=== PATIENT | male | born 1955 | race Caucasian/White ===

== ENCOUNTER 2016-07-24 13:30 | Inpatient (IN) | payer OTHER ==
[~2016-07-24] VITALS: Ht 182.9 cm; Wt 107.5 kg
[~2016-07-24 13:30] MED LIST: ADVAIR; ALBUTEROL IH; ASPIRIN81 M1 PO; ATROVENT; AUGMENTIN 875 M1 TAB PO; BACTRIM DS 800/1 TAB PO; CEFDINIR300 MG PO; CEPHALEXIN500 M2 PO; CLEOCIN HCL150 MG PO; CLEOCIN HCL300 MG PO; DELTASONE20 MG PO; ENALAPRIL20 MG PO; GLUCOPHAGE1000 MG PO; LEVAQUIN500 MG PO; METFORMIN850 MG PO; MICROZIDE12.5 MG PO; MOXIFLOXACIN 0.5% OP; NORCO 10/325 MG1 TAB; NORCO 10/325 MG1 TAB PO; NORCO 325 MG-7.1 TAB PO; NORVASC5 MG PO; ORETIC25 MG PO; PHENERGAN/DEXTRO5 ML PO; PREDNISONE; PREDNISONE10 MG PO; PREDNISONE20 MG PO; PROAIR HFA0.09 MG/Ac IH; PROVENTIL0.09 MG/Ac IH; QVAR HFA M80 MCG/ACT INH; QVAR0.08 MG/Ac IH; VASOTEC20 MG PO; ZITHROMAX500 M1 IV; [UNRECOGNIZED DRUG - OTHER] IH; [UNRECOGNIZED DRUG - OTHER] OP; [UNRECOGNIZED DRUG - OTHER] OP; [UNRECOGNIZED DRUG - SUPPLY] MC
[2016-07-24 14:00] VITALS: BP 155/89
[2016-07-24] MEDS ORDERED: ROXICODONE5 M1 PO (14:08)
[2016-07-24] MEDS ORDERED: DELTASONE20 MG PO (14:08)
[2016-07-24] MEDS ORDERED: NORVASC5 MG PO (14:08)
--- NOTE | 2016-07-24 14:25 | NUR ---
PT SENT TO XRAY.
--- NOTE | 2016-07-24 14:36 | NUR ---
PT W/C TO BED 3. LAB AT BEDSIDE.
--- NOTE | 2016-07-24 14:40 | NUR ---
PATIENT PRESENTS TO ED WITH SOB COUGH X 2-3 DAYS--WORSENING PER PT. PT STATES [ANTERIOR CHEST WALL SHARP PAIN WITH STRONG COUGH, SUBJECTIVE FEVER . DENIES N/V/D; SKIN IS PINK/WARM/DRY; AAOX4 WITH EVEN AND STEADY GAIT; LUNGS CLEAR BL; HR EVEN AND REGULAR; PATIENT STATES PAIN OF 5/10 AT THIS TIME; VSS; PATIENT POSITIONED FOR COMFORT; HOB ELEVATED; BEDRAILS UP X2; BED DOWN. ER MD MADE AWARE OF PT STATUS.
[2016-07-24] MEDS ORDERED: IPRATROPIUM 0.02% 0.5 MG/2.5 ML NEBU INH ONE ×2 (15:00→15:50)
[2016-07-24] MEDS ORDERED: DEXAMETHASONE 10 MG/ML VIAL IM ONE (15:00)
[2016-07-24] MEDS ORDERED: ALBUTEROL 0.083% 2.5 MG/3 ML NEBU INH ONE ×2 (15:00→15:50)
--- NOTE | 2016-07-24 15:35 | NUR ---
RT FINISHED BREATHING TREATMENT
--- NOTE | 2016-07-24 15:40 | NUR ---
PLAN WAS TO POSSIBLY DC PT WITH RX AND F/U WITH PMD--NOTED PT SPO2 TO DROP 88% GOOD WAVE FORM---MD AT BEDSIDE. PT OKAY WITH STAYING FOR OBSERVATION.
[2016-07-24] MEDS ORDERED: AZITHROMYCIN 500 MG in DEXTROSE 5% 250 ML IV ONE (15:50)
[2016-07-24] MEDS ORDERED: ONDANSETRON 4 MG/2 ML VIAL IVP PRN (16:05)
[2016-07-24] MEDS ORDERED: HYDROcodone/APAP 5/325 MG 1 TAB TAB PO PRN (16:05)
[2016-07-24] MEDS ORDERED: ALBUTEROL SULFATE/IPRATROPIU 3 ML SOL INH PRN (16:05)
[2016-07-24] MEDS ORDERED: ACETAMINOPHEN 325 MG TAB PO PRN (16:05)
[2016-07-24] MEDS ORDERED: LORazepam 2 MG/ML VIAL IVP PRN (16:05)
[2016-07-24] MEDS ORDERED: NON-FORMULARY ITEM (Beclomethasone Dipropionate Mdi* (Qvar Hfa Mdi*) 80 MCG) INH SCH (16:15)
[2016-07-24] MEDS ORDERED: DEXTROSE 50% 50 ML SYR IVP PRN (16:15)
[2016-07-24] MEDS ORDERED: oxyCODONE 5 MG TAB PO PRN (16:15)
[2016-07-24] MEDS ORDERED: AZITHROMYCIN 500 MG INJ VIAL IV ONE (16:17)
[2016-07-24] MEDS ORDERED: cefTRIAXone 1,000 MG VIAL ONE (16:17)
[2016-07-24] MEDS: BLOOD GLUCOSE MONITORING 1 DEV DEV FS SCH ×2 (16:30→21:25)
--- NOTE | 2016-07-24 16:40 | NUR ---
COMPLETED 2ND BREATHING TREATMENT, PT DENIES ANXIETY. ABLE TO HOLD CONVERSATION WITH STAFF 3-4 WORDED SENTENCES
--- NOTE | 2016-07-24 17:15 | NUR ---
RECEIVED REPORT FROM AMAURY IN ED, AMAURY SAID THEY STILL NEEDED TO TAKE PICTURES OF THE PATIENT WOUNDS ON BOTH OF HIS FEET AND WAS RECEIVING ZITHROMAX.
--- NOTE | 2016-07-24 17:16 | NUR ---
Pt transferred to Tele via [employer] , REPORT GIVEN TO HEMANT DARBY
--- NOTE | 2016-07-24 18:15 | NUR ---
RECEIVED PT ON UNIT VIA [facility], PT IS A/OX4, AMBULATORY, PT HAS IV ON THE LEFT HAND, PATENT AND INTACT, PT HAS BANDAGE WRAPPING ON BOTH LOWER EXTREMITIES, PT IS ON O2 2L NC, NO S/S OF RESPIRATORY DISTRESS OR DISCOMFORT NOTED, DISCUSSED PLAN OF CARE WITH PT, PT VERBALIZED UNDERSTANDING, ORIENTED PT TO ROOM, SAFETY/FALL PRECAUTIONS ARE IN PLACE, CALL LIGHT IS WITHIN REACH, WILL CONTINUE TO MONITOR.
--- NOTE | 2016-07-24 19:10 | NUR ---
ENDORSED PT TO WILNER PEACOCK. FOR CONTINUITY OF CARE. PT VS 124/74, HR 113, TEMP.97.8, PULSE O2 95%, R 20. PT STABLE AT THIS TIME.
--- NOTE | 2016-07-24 19:15 | NUR ---
RECEIVED REPORT, ASSUMED CARE. PT AAOX4. LYING ON [place]IGH [place]'S POSITION. ON O2 AT 2L VIA NC. RESPIRATION EVEN AND UNLABORED. SL TO RT HAND, GAUGE 20. NO S/S OF INFILTRATION NOTED AT THIS TIME. BILATERAL LOWER EXT WRAPPED WITH JESS BANDAGE. PER PT, LT LEG HAS WOUND AND THAT HIS HOME HEALTH NURSE WRAPPED IT WITH BANDAGE AFTER TX. PER PT, PHOTOS WERE TAKEN AT THE ER. DISCUSSED PLAN OF CARE. INSTRUCTED TO CALL STAFF WHEN REQUIRES ASSISTANCE. PT VERBALIZED UNDERSTANDING. CALL LIGHT WITHIN EASY REACH. WILL CONTINUE TO MONITOR.
[2016-07-24] MEDS ORDERED: methylPREDNISolone SS 125 MG in WATER STERILE 2 ML IV ONE (21:00)
[2016-07-24] MEDS: methylPREDNISolone SS 125 MG/2 ML VIAL IVP SCH (21:24)
[2016-07-24] MEDS: INSULIN LISPRO SLIDING SCALE 100 UNITS/ML VIAL SUBQ PRN (21:27)
--- NOTE | 2016-07-24 22:30 | NUR ---
ROUTINE ROUNDS, PT SLEEPING AT THIS NIKI BUT AROUSABLE. RESPIRATION EVEN AND UNLABORED,NO S/S OF RESPIRATORY DISTRESS. NO FACIAL GRIMACING INDICATING PAIN. O2 AT 2L VIA NC. WILL CONTINUE TO MONITOR.
[2016-07-25] VITALS: BP 137/65
[2016-07-25 01:00] VITALS: BP 135/81
[2016-07-25 04:00] VITALS: BP 135/81
[2016-07-25] MEDS ORDERED: guaiFENesin DM 200/20 MG-10 ML 10 ML UDC PO PRN (04:50)
[2016-07-25] MEDS ORDERED: traMADol 50 MG TAB PO PRN (04:50)
[2016-07-25] MEDS: methylPREDNISolone SS 125 MG/2 ML VIAL IVP SCH ×2 (05:20→12:51)
[2016-07-25] MEDS: BLOOD GLUCOSE MONITORING 1 DEV DEV FS SCH ×2 (06:31→11:33)
[2016-07-25] MEDS: INSULIN LISPRO SLIDING SCALE 100 UNITS/ML VIAL SUBQ PRN ×2 (06:33→11:56)
--- NOTE | 2016-07-25 07:25 | NUR ---
PT AWAKE AND VERBALLY RESPONSIVE. NO C/O PAIN, NO S/S OF RESPIRATORY DISTRESS AT THIS TIME. PT ON BREATHING TX AT THIS TIME. ENDORSED TO NEXT SHIFT FOR CONTINUITY OF CARE.
--- NOTE | 2016-07-25 07:26 | NUR ---
RECEIVED REPORT FROM NIGHT NURSE AT PT BEDSIDE. RT AT BEDSIDE RECEIVING BREATHING TREATMENT. PATIENT IS ALERT AND ORIENTED X4. BILATERAL WHEEZES HEARD OVER LUNGS. DENIES PAIN AT THIS TIME. WOUND DRESSINGS ON BILATERAL LEGS, INTACT AND DRY. IV TO RH PATENT AND INTACT. ON O2 3L NC. DENIES N/V. CALL LIGHT WITHIN REACH. BED IN LOWEST POSITION. WILL CONTINUE TO MONITOR.
[2016-07-25 08:00] VITALS: BP 134/71
[2016-07-25] MEDS ORDERED: ENOXAPARIN 40 MG/0.4 ML SYR SUBQ SCH (09:00)
[2016-07-25] MEDS ORDERED: amLODIPine 5 MG TAB PO SCH (09:00)
[2016-07-25] MEDS ORDERED: AZITHROMYCIN 500 MG in DEXTROSE 5% 250 ML IV SCH (09:00)
--- NOTE | 2016-07-25 09:07 | NUR ---
PATIENT HAS BEEN SCREENED AND CATEGORIZED HIGH NUTRITION RISK. PATIENT WILL BE SEEN WITHIN 1-2 DAYS OF ADMISSION. 07/25/16-07/26/[address]
--- NOTE | 2016-07-25 09:30 | NUR ---
PATIENT SEEN BY DR. STOLL AT PT BEDSIDE. PATIENT TAKEN OFF O2 3L NC. ON ROOM AIR, SATURATING 91%. PATIENT OKAY TO D/C HOME WITH FOLLOW UP APPOINTMENTS.
[2016-07-25] MEDS ORDERED: MAGNESIUM OXIDE 400 MG TAB PO SCH (10:17)
[2016-07-25] MEDS ORDERED: ZITHROMAX250 MG PO (10:20)
[2016-07-25] MEDS ORDERED: MEDROL4 M1 PO (10:22)
--- NOTE | 2016-07-25 12:40 | NUR ---
PATIENT'S DRESSINGS REPLACED, CLEAN AND INTACT. PT TOLERATED LUNCH. ALL NEEDS MET. NO S/S OF DISTRESS NOTED.
--- NOTE | 2016-07-25 13:06 | NUR ---
FAXED INITIAL REVIEW TO [facility] [phone] PHONE JULY [phone] CAS [phone]
--- NOTE | 2016-07-25 13:37 | NUR ---
07/25/16 RD INITIAL ASSESSMENT COMPLETED PLEASE REFER TO NUTRITION ASSESSMENT UNDER CARE ACTIVITY FOR ESTIMATED NUTRITIONAL NEEDS. 1. CHANGE DIET TO: 75 GM CONSISTENT CARBOHYDRATE DIET 2. ADD VITAMIN C SUPPLEMENT 1X/DAILY 3. ADD PROSOURCE 2X/DAILY 4. RD TO FOLLOW-UP 2-3 DAYS; HIGH RISK ROBEL ESPINOZA RD
--- NOTE | 2016-07-25 13:40 | NUR ---
PT DISCHARGE INSTRUCTIONS WITH PRESCRIPTIONS GIVEN, VERBALIZED UNDERSTANDING. PT AAOX4. AMBULATES. NO S/S OF RESPIRATORY DISTRESS ON ROOM AIR. PATIENT BELONGINGS RECEIVED FROM SECURITY. PT IV REMOVED, CANULA INTACT. PATIENT'S FAMILY TO TANK BOTTOM ASSEMBLER PATIENT. PATIENT WHEELED TO FRONT LOBBY, RECEIVED HOME MEDICATIONS FROM PHARMACY.
== END 2016-07-25 13:40 | disposition home or self-care (01) | DRG 140 ==
LOC: MED 13:30 → MTU 16:11
PROVIDERS: ADMIT Hospitalist; ATTEND Hospitalist
DX: J44.1 Chronic obstructive pulmonary disease with (acute) exacerbation (principal); E11.22 Type 2 diabetes mellitus with diabetic chronic kidney disease; E11.51 Type 2 diabetes mellitus with diabetic peripheral angiopathy without gangrene; G89.29 Other chronic pain; I12.9 Hypertensive chronic kidney disease with stage 1 through stage 4 chronic kidney disease, or unspecified chronic kidney disease; N18.9 Chronic kidney disease, unspecified; E83.42 Hypomagnesemia; E86.0 Dehydration; K42.9 Umbilical hernia without obstruction or gangrene; Z88.6 Allergy status to analgesic agent; Z88.1 Allergy status to other antibiotic agents; Z87.891 Personal history of nicotine dependence; Z88.8 Allergy status to other drugs, medicaments and biological substances; Z98.49 Cataract extraction status, unspecified eye; Z79.52 Long term (current) use of systemic steroids; Z89.422 Acquired absence of other left toe(s)

== ENCOUNTER 2017-05-27 17:11 | Inpatient (IN) | payer OTHER ==
[~2017-05-27] VITALS: Ht 182.9 cm; Wt 105.2 kg
[~2017-05-27 17:11] MED LIST changes: +ACET-9525 PO; -ADVAIR; +ALBU0.094 IH; -ALBUTEROL IH; +AMLO5TAB PO; +ASPI81CT95 PO; -ASPIRIN81 M1 PO; +ATOR20TA40 PO; -ATROVENT; -AUGMENTIN 875 M1 TAB PO; -BACTRIM DS 800/1 TAB PO; +BUDE1AER IH; -CEFDINIR300 MG PO; -CEPHALEXIN500 M2 PO; -CLEOCIN HCL150 MG PO; -CLEOCIN HCL300 MG PO; -DELTASONE20 MG PO; +DOCU-299 PO; -ENALAPRIL20 MG PO; +GLIP5TAB4 PO; -GLUCOPHAGE1000 MG PO; -LEVAQUIN500 MG PO; -METFORMIN850 MG PO; +METO50TE2 PO; -MICROZIDE12.5 MG PO; -MOXIFLOXACIN 0.5% OP; -NORCO 10/325 MG1 TAB; -NORCO 10/325 MG1 TAB PO; -NORCO 325 MG-7.1 TAB PO; -NORVASC5 MG PO; -ORETIC25 MG PO; -PHENERGAN/DEXTRO5 ML PO; -PREDNISONE; -PREDNISONE10 MG PO; -PREDNISONE20 MG PO; -PROAIR HFA0.09 MG/Ac IH; -PROVENTIL0.09 MG/Ac IH; -QVAR HFA M80 MCG/ACT INH; -QVAR0.08 MG/Ac IH; +TAMS0.4C96 PO; -VASOTEC20 MG PO; -ZITHROMAX500 M1 IV; -[UNRECOGNIZED DRUG - OTHER] IH; -[UNRECOGNIZED DRUG - OTHER] OP; -[UNRECOGNIZED DRUG - OTHER] OP; -[UNRECOGNIZED DRUG - SUPPLY] MC
[2017-05-27 17:31] VITALS: BP 134/87
--- NOTE | 2017-05-27 17:40 | NUR ---
Pt presents to ED urine retention and urinary urgency. Pt referred to ED from urologist to r/o sepsis. Pt afebrile. Bladder scan completed and show 832ml of residual urine. VSS. ER MD aware. Positioned in bed for comfort. Continue to monitor.
--- NOTE | 2017-05-27 17:40 | NUR ---
PT AMBULATES TO BED 11
[2017-05-27] MEDS ORDERED: NACL 0.9% 1,000 ML IV ONE ×2 (17:45→19:45)
[2017-05-27 18:54] LABS: BASOPHILS # (AUTO) 0.1 K/uL (0.00-0.22); EOSINOPHILS # (AUTO) 0.1 K/uL (0-0.4); HEMOGLOBIN 9.5 g/dL (12.0-18.0); MEAN CORPUSCULAR HEMOGLOBIN 25 pg (27-31); MEAN CORPUSCULAR HGB CONC 32 g/dL (33-37); NEUTROPHILS # (AUTO) 13.3 K/uL (1.8-7.7)
[2017-05-27 19:01] LABS: BASOPHILS % (AUTO) 0.3 % (0.0-2.0); EOSINOPHILS % (AUTO) 0.4 % (0.0-4.0); HEMATOCRIT 29.9 % (36-52); LYMPHOCYTES # (AUTO) 1.2 K/uL (2.0-11.5); MEAN CORPUSCULAR VOLUME 78.9 fL (80-94); MONOCYTES # (AUTO) 2.3 K/uL (0.8-1.0); MONOCYTES % (AUTO) 13.7 % (1.7-9.3); NEUTROPHILS % (AUTO) 78.6 % (42.2-75.2); PLATELET COUNT (AUTO) 265 K/uL (140-450); RED BLOOD CELL COUNT(AUTO) 3.79 MIL/uL (4.20-6.10); RED CELL DISTRIBUTION WIDTH 16.6 % (11.6-13.7)
--- NOTE | 2017-05-27 19:24 | NUR ---
RECEIVED REPORT FROM AM WILNER WOODSON.
[2017-05-27 19:26] LABS: ANION GAP 12.6 (8-16); CARBON DIOXIDE 25.8 mmol/L (21-32); POTASSIUM 3.4 mmol/L (3.5-5.1)
[2017-05-27 19:27] LABS: ALBUMIN 2.8 g/dL (3.4-5.0); CREATININE 2.1 mg/dL (0.7-1.3); TOTAL BILIRUBIN 0.6 mg/dL (0.0-1.0)
[2017-05-27] MEDS ORDERED: MORPHINE SULFATE 4 MG/ML SYR IVP ONE (19:45)
[2017-05-27] MEDS ORDERED: cefTRIAXone 1,000 MG VIAL ONE (19:53)
[2017-05-27] MEDS ORDERED: KCL 20 MEQ/WATER INJ PREMIX 100 ML IV ONE (20:05)
[2017-05-27] MEDS ORDERED: ONDANSETRON 4 MG/2 ML VIAL IVP PRN (20:05)
--- NOTE | 2017-05-27 20:05 | NUR ---
PER PATIENT, DID NOT WANT ME TO TAKE OFF WOUND CARE DRESSING FOR PHOTO DOCUMENTATION. RN AND MD MADE AWARE.
[2017-05-27 20:33] LABS: PROTHROMBIN TIME 12.2 secs (10.8-13.4)
[2017-05-27] MEDS ORDERED: METF850T PO (20:36)
[2017-05-27 21:00] VITALS: BP 144/83
--- NOTE | 2017-05-27 21:15 | NUR ---
Pt report given to SILVESTRE RUSS RN. Transfer of care at this time.
--- NOTE | 2017-05-27 21:20 | NUR ---
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
--- NOTE | 2017-05-27 21:40 | NUR ---
DR JAYCOB LINDER CALLED FOR NEPHROLOGY CONSULT, UPDATED ON PT'S CONDITION, NO NEW ORDER.
[2017-05-27] MEDS ORDERED: PIPERACILLIN/TAZOBACTAM 2.25 GM VIAL IV ONE (21:45)
[2017-05-27] MEDS: NACL 0.9% 1,000 ML IV SCH (21:51)
[2017-05-27] MEDS: PIPERACILLIN/TAZOBACTAM 2.25 GM in DEXTROSE 5% 50 ML IV SCH (21:51)
[2017-05-27] MEDS: BLOOD GLUCOSE MONITORING 1 DEV DEV FS SCH (21:52)
[2017-05-27] MEDS: MORPHINE SULFATE 2 MG/ML SYR IVP PRN (23:18)
[2017-05-28] VITALS: BP 138/77
[2017-05-28 03:09] LABS: APPEARANCE,URINE SL CLOUDY (CLEAR); BILIRUBIN,URINE NEGATIVE (NEGATIVE); BLOOD, URINE 2+ (NEGATIVE); COLOR,URINE YELLOW (YELLOW); LEUKOCYTE ESTERASE ,URINE 2+ (NEGATIVE); NITRITE, URINE NEGATIVE (NEGATIVE); PH,URINE 6.5 (5.0-9.0); UGLUCOSE NEGATIVE (NEGATIVE)
[2017-05-28] MEDS: MORPHINE SULFATE 2 MG/ML SYR IVP PRN ×4 (03:21→20:35)
[2017-05-28] MEDS ORDERED: IBUPROFEN 200 MG TAB PO PRN (03:30)
--- NOTE | 2017-05-28 03:47 | NUR ---
TEMP-103.1, ST-132, PAGED DR BEASLEY WITH NEW ORDER, MOTRIN PO GIVEN FOR FEVER, COOLING MEASURES DONE, MEDICATED PRN FOR PAIN, MONITORED CLOSELY.
[2017-05-28 04:00] VITALS: BP 123/63
[2017-05-28] MEDS ORDERED: PIPERACILLIN/TAZOBACTAM 2.25 GM VIAL IV ONE (04:41)
[2017-05-28] MEDS: PIPERACILLIN/TAZOBACTAM 2.25 GM in DEXTROSE 5% 50 ML IV SCH (04:47)
--- NOTE | 2017-05-28 04:50 | NUR ---
TEMP RECHECKED WITH 99.0, HR-116, NO DISTRESS NOTED, MONITORED CLOSELY.
[2017-05-28 05:38] LABS: RBC,URINE 3-10 (FEW) /HPF (0-5)
--- NOTE | 2017-05-28 06:00 | NUR ---
BLOOD SUGAR CHECKED WITH 217 RESULT, COVERAGE GIVEN, IV ZOSYN INFUSING WELL, ALCALA INTACT DRAINING WELL, MONITORED CLOSELY.
[2017-05-28] MEDS: INSULIN LISPRO SLIDING SCALE 100 UNITS/ML VIAL SUBQ PRN ×2 (06:05→20:44)
[2017-05-28] MEDS: BLOOD GLUCOSE MONITORING 1 DEV DEV FS SCH ×4 (06:47→20:45)
--- NOTE | 2017-05-28 07:22 | NUR ---
PT AWAKE, NO SIGNS OF DISTRESS, BEDSIDE REPORT GIVEN TO WILNER CACERES FOR CONTINUITY OF CARE.
--- NOTE | 2017-05-28 07:22 | NUR ---
RECEIVED REPORT FROM NIGHTSHIFT NURSE AT BEDSIDE. PATIENT ALERT AND ORIENTED X4. PATIENT HAS A ALCALA CATHETER IN PLACE. IV NOTED ON BOTH HANDS 20G. NORMAL SALINE FLUID INFUSING 75 ML/HOUR. PATIENT'S RESPIRATIONS ARE WITHIN NORMAL LIMITS. CALL LIGHT WITHIN REACH OF PATIENT. INSTRUCTED PATIENT TO CALL IF HE NEEDS HELP AMBULATING OR WITH ANYTHING. WILL CONTINUE TO MONITOR PATIENT.
[2017-05-28 07:34] LABS: BASOPHILS # (AUTO) 0.1 K/uL (0.00-0.22); BASOPHILS % (AUTO) 0.5 % (0.0-2.0); EOSINOPHILS # (AUTO) 0.1 K/uL (0-0.4); EOSINOPHILS % (AUTO) 0.8 % (0.0-4.0); HEMOGLOBIN 9.9 g/dL (12.0-18.0); LYMPHOCYTES # (AUTO) 0.9 K/uL (2.0-11.5); LYMPHOCYTES % (AUTO) 5.9 % (20.5-51.1); MEAN CORPUSCULAR HEMOGLOBIN 26 pg (27-31); MEAN CORPUSCULAR HGB CONC 32 g/dL (33-37); MEAN CORPUSCULAR VOLUME 80.2 fL (80-94); MONOCYTES % (AUTO) 12.3 % (1.7-9.3); NEUTROPHILS # (AUTO) 12.9 K/uL (1.8-7.7); NEUTROPHILS % (AUTO) 80.5 % (42.2-75.2); PLATELET COUNT (AUTO) 270 K/uL (140-450); RED BLOOD CELL COUNT(AUTO) 3.87 MIL/uL (4.20-6.10); RED CELL DISTRIBUTION WIDTH 16.9 % (11.6-13.7)
[2017-05-28 07:42] LABS: ALBUMIN 2.3 g/dL (3.4-5.0); ANION GAP 13.9 (8-16); CARBON DIOXIDE 24.4 mmol/L (21-32); CREATININE 1.9 mg/dL (0.7-1.3); POTASSIUM 3.3 mmol/L (3.5-5.1); TOTAL BILIRUBIN 0.6 mg/dL (0.0-1.0)
[2017-05-28 08:00] VITALS: BP 104/56
[2017-05-28] MEDS: FINASTERIDE 5 MG TAB PO SCH (08:34)
[2017-05-28] MEDS: TAMSULOSIN 0.4 MG CAP PO SCH (08:34)
--- NOTE | 2017-05-28 09:00 | NUR ---
PATIENT IS AWAKE RESTING. NO COMPLAINTS OF PAIN AT THIS TIME. PATIENT IN SEMI FOWLERS POSITION. NO SIGNS OF RESPIRATORY DISTRESS. WILL CONTINUE TO MONITOR PATIENT.
[2017-05-28] MEDS: NACL 0.9% 1,000 ML IV SCH (09:24)
--- NOTE | 2017-05-28 11:11 | NUR ---
PATIENT RESTING AT THIS TIME. NO COMPLAINTS OF PAIN. WILL CONTINUE TO MONITOR PATIENT.
[2017-05-28 12:00] VITALS: BP 118/79
[2017-05-28] MEDS: PIPER/TAZO 2.25GM/D5W PREMIX 50 ML IV SCH ×2 (12:22→20:35)
--- NOTE | 2017-05-28 12:27 | NUR ---
CM NOTE INITIAL REVIEW FAXED TO [facility] [phone] CAS # [phone]
--- NOTE | 2017-05-28 13:22 | NUR ---
PATIENT RESTING AT THIS TIME. NO COMPLAINTS OF PAIN. WILL CONTINUE TO MONITOR PATIENT.
[2017-05-28] MEDS ORDERED: POTASSIUM CHLORIDE 20 MEQ, LIDOCAINE 1% 25 MG in NACL 0.9% 250 ML IV SCH (13:30)
[2017-05-28] MEDS: POTASSIUM CHLORIDE 20 MEQ in NACL 0.45% 1,000 ML IV SCH (14:00)
[2017-05-28] MEDS: ALBUTEROL SULFATE/IPRATROPIU 3 ML SOL IH PRN ×2 (15:14→19:39)
--- NOTE | 2017-05-28 15:24 | NUR ---
PATIENT AWAKE AND ALERT. BREATH SOUNDS DIMINISHED. PT COMPLAINS OF SOB. PRN TX ADMINISTERED. PATIENT TOLERATED TX WELL. POST TX BREATH SOUNDS IMPORVED AERAION WITH EXPIRATORY WHEEZES. PATIENT STATES THAT HE "FEELS BETTER" POST TREATMENT. NO ADVERSE REACTIONS. NO SIGNS OF RESPIRATORY DISTRESS AT THIS TIME.
[2017-05-28 16:00] VITALS: BP 116/62
--- NOTE | 2017-05-28 17:41 | NUR ---
PATIENT RESTING IN BED. PATIENT AROUSABLE TO NAME. NO COMPLAINTS OF PAIN AT THIS TIME. WILL CONTINUE TO MONITOR PATIENT.
--- NOTE | 2017-05-28 19:24 | NUR ---
GAVE REPORT TO NIGHTSHIFT NURSE AT BEDSIDE. PATIENT IN STABLE CONDITION.
--- NOTE | 2017-05-28 19:25 | NUR ---
RECEIVED PT SLEEPING, EASILY AROUSABLE, VITAL SIGNS STABLE, ST ON TELE, NO SOB NOTED, TOLERABLE PAIN AT THIS TIME, WILL MEDICATE PRN, IVF INFUSING WELL, BLE VENOUS STASIS WITH WRAPPED DRESSING INTACT, ALCALA CATHETER TO GRAVITY WITH CLEAR YELLOW OUTPUT, PLAN OF CARE DISCUSS, SAFETY MEASURES IN PLACE, CALL LIGHT WITHIN REACH.
[2017-05-28 20:00] VITALS: BP 118/65
--- NOTE | 2017-05-28 20:45 | NUR ---
BLOOD SUGAR CHECKED WITH 182 RESULT, COVERAGE GIVEN, SNACK PROVIDED, DUE MEDS ADMINISTERED WITH TEACHING PROVIDED, MEDICATED PRN FOR PAIN, ALL NEEDS ATTENDED.
--- NOTE | 2017-05-28 23:45 | NUR ---
PT SLEEPING, EASILY AROUSABLE, VITAL SIGNS TAKEN, ORAL TEMP-99.7, ST-116 ON TELE, STARTED COOLING MEASURES, DENIES ANY PAIN, IVF INFUSING WELL, CONTINUE TO MONITOR CLOSELY.
[2017-05-29] VITALS: BP 107/56
[2017-05-29] MEDS: POTASSIUM CHLORIDE 20 MEQ in NACL 0.45% 1,000 ML IV SCH ×2 (00:06→03:35)
[2017-05-29] MEDS: MORPHINE SULFATE 2 MG/ML SYR IVP PRN ×4 (03:32→20:57)
--- NOTE | 2017-05-29 03:35 | NUR ---
PT AWAKE, COMPLAINING OF LEFT INDEX FINGER CRAMPING, IVF TRANSFERRED TO RT HAND, FELT BETTER, VITAL SIGNS TAKEN, AFEBRILE, ST ON TELE, MEDICATED PRN FOR LEG PAIN, MONITORED CLOSELY.
[2017-05-29 04:00] VITALS: BP 128/65
[2017-05-29] MEDS: PIPER/TAZO 2.25GM/D5W PREMIX 50 ML IV SCH ×3 (04:37→20:52)
--- NOTE | 2017-05-29 05:51 | NUR ---
BLOOD SUGAR CHECKED WITH 123 RESULT, NO COVERAGE NEEDED, NO DISTRESS AT THIS TIME, MONITORED CLOSELY.
[2017-05-29] MEDS: BLOOD GLUCOSE MONITORING 1 DEV DEV FS SCH ×4 (06:47→20:57)
[2017-05-29 07:03] LABS: MAGNESIUM 1.2 mg/dL (1.8-2.4); PHOSPHORUS 3.3 mg/dL (2.5-4.9)
--- NOTE | 2017-05-29 07:05 | NUR ---
RECEIVED PATIENT REPORT AT BEDSIDE. PATIENT AWAKE, ALERT AND ORIENTED. NO S/S OF DISTRESS. PATIENT ON ROOM AIR NO SOB NOTED, NO C/O PAIN. IVF INFUSING WELL, BLE VENOUS STASIS WITH WRAPPED DRESSING INTACT, ALCALA CATHETER TO GRAVITY WITH CLOUDY YELLOW OUTPUT, PLAN OF CARE DISCUSS, SAFETY MEASURES IN PLACE, CALL LIGHT WITHIN REACH.
--- NOTE | 2017-05-29 07:10 | NUR ---
PT AWAKE, NO SIGNS OF DISTRESS, BEDSIDE REPORT GIVEN TO WILNER GAR FOR CONTINUITY OF CARE.
[2017-05-29 08:00] VITALS: BP 122/72
[2017-05-29 08:25] LABS: ANION GAP 17.3 (8-16); CARBON DIOXIDE 24.2 mmol/L (21-32); CREATININE 1.5 mg/dL (0.7-1.3); POTASSIUM 3.5 mmol/L (3.5-5.1)
--- NOTE | 2017-05-29 09:23 | NUR ---
Spoke to pt. pt. is aax3, pt refuses with wound care evaluation, pt will continue to follow up with his previous wound care clinic and his caterpillar driver. primary RN notified.
[2017-05-29] MEDS: FINASTERIDE 5 MG TAB PO SCH (09:25)
[2017-05-29] MEDS: TAMSULOSIN 0.4 MG CAP PO SCH (09:25)
--- NOTE | 2017-05-29 09:30 | NUR ---
ADMINISTERED DUE MEDICATIONS. PATIENT TOLERATED WELL
--- NOTE | 2017-05-29 10:22 | NUR ---
CM NOTE CONCURRENT REVIEW FAXED TO [facility] [phone] CAS # [phone]
[2017-05-29] MEDS: ALBUTEROL SULFATE/IPRATROPIU 3 ML SOL IH PRN (11:16)
[2017-05-29 12:00] VITALS: BP 120/65
[2017-05-29 13:02] LABS: HEMATOCRIT 30.8 % (36-52); HEMOGLOBIN 9.8 g/dL (12.0-18.0); MEAN CORPUSCULAR HEMOGLOBIN 25 pg (27-31); MEAN CORPUSCULAR HGB CONC 32 g/dL (33-37); MEAN CORPUSCULAR VOLUME 78.5 fL (80-94); PLATELET COUNT (AUTO) 266 K/uL (140-450); RED BLOOD CELL COUNT(AUTO) 3.93 MIL/uL (4.20-6.10); RED CELL DISTRIBUTION WIDTH 17.1 % (11.6-13.7); WHITE BLOOD COUNT (AUTO) 11.8 K/uL (4.8-10.8)
--- NOTE | 2017-05-29 13:15 | NUR ---
MARIO NOTE RECEIVED DISCHARGE PLANNING ORDER FOR HH. PER MARIO SALGADO PH# [phone], CONTACT KARIN ANDRADE FOR ANY DC NEEDS. PER LINDA OF [facility], THEY ARE CURRENTLY SEEING PATIENT FOR WOUND CARE AND THEY WOULD HAVE A NURSE/PT TO SEE PATIENT WHEN DISCHARGED. FAXED ORDER TO [facility] [phone] ATTN: KARIN ANDRADE PH# [phone] AND TO [facility] [phone] ATTN: [facility]# [phone]. PER [facility] MARIO ANDRADE, SHE CANNOT FIND THE PATIENT ON THEIR SYSTEM AND WILL HAVE TO WAIT FOR HER CLINICAL COUNSELOR AND WILL CALL BACK WITH THE AUTHORIZATION AND SHE WILL FAX AUTHORIZATION TO [facility] ONCE SHE FINDS PATIENT IN THEIR SYSTEM.
--- NOTE | 2017-05-29 13:29 | NUR ---
05/29/2017 RD INITIAL ASSESSMENT COMPLETED PLEASE REFER TO NUTRITION ASSESSMENT UNDER CARE ACTIVITY FOR ESTIMATED NUTRITIONAL NEEDS. CONTINUE 60 GMS CCHO TOLERATED. SOFT TEXTURE FOODS. PROVIDED RENAL DIET NUTRITION EDUCATION. RD TO FOLLOW-UP IN 3-5 DAYS PATIENT IS MODERATE RISK. TAHMINA BILLS, ZACHARY
[2017-05-29] MEDS: INSULIN LISPRO SLIDING SCALE 100 UNITS/ML VIAL SUBQ PRN ×2 (14:00→22:10)
[2017-05-29] MEDS ORDERED: MAG SULF 2000 MG/WATER PREMIX 50 ML IV SCH (14:30)
--- NOTE | 2017-05-29 14:30 | NUR ---
PATIENT SEEN BY DR MCLAIN
[2017-05-29 15:04] LABS: EOSINOPHILS % (MANUAL) 2 % (0-4); LYMPHOCYTES % (MANUAL) 4 % (20-46); MONOCYTES % (MANUAL) 13 % (5-12)
[2017-05-29] MEDS: POTASSIUM CHL 20 MEQ/ 1/2 NS 1,000 ML IV SCH (15:50)
[2017-05-29 16:00] VITALS: BP 122/76
--- NOTE | 2017-05-29 16:30 | NUR ---
PATIENT COMFORTABLY RESTING IN BED, WATCHING TELEVISION. NO S/S OF DISTRESS NOTED
--- NOTE | 2017-05-29 19:35 | NUR ---
PATIENT REPORT GIVEN AT BEDSIDE. PATIENT ENDORSED IN STABLE CONDITION
[2017-05-29 20:00] VITALS: BP 126/70
[2017-05-30] VITALS: BP 118/74
[2017-05-30] MEDS: MORPHINE SULFATE 2 MG/ML SYR IVP PRN ×3 (02:03→12:24)
[2017-05-30] MEDS: POTASSIUM CHL 20 MEQ/ 1/2 NS 1,000 ML IV SCH (03:01)
[2017-05-30 04:00] VITALS: BP 128/78
[2017-05-30] MEDS: PIPER/TAZO 2.25GM/D5W PREMIX 50 ML IV SCH ×2 (05:09→12:23)
[2017-05-30] MEDS: BLOOD GLUCOSE MONITORING 1 DEV DEV FS SCH ×2 (06:34→11:30)
--- NOTE | 2017-05-30 07:30 | NUR ---
RECEIVED REPORT AT BEDSIDE FROM ZIGZAG APPLIQUER NURSE FOR CONTINUITY OF CARE. PATIENT IN BED AWAKE WATCHING TV. RESP EVEN AND UNLABORED. PATIENT WITH R HAND 20G WITH NS WITH POTASSIUM 20MEQ RUNNING AT 60ML/HR PATIENT. PT WITH DRESSING TO BILAT LOWER EXTREMITIES WITH COMPRESSION STOCKINGS. WILL CONT TO MONITOR.
--- NOTE | 2017-05-30 07:30 | NUR ---
REPORT GIVEN TO DAY NURSE FOR CONTINUITY OF CARE, PT IN STABLE CONDITION. NO S/S OF DISTRESS NOTED.
[2017-05-30 07:32] LABS: MAGNESIUM 1.4 mg/dL (1.8-2.4); PHOSPHORUS 2.9 mg/dL (2.5-4.9)
[2017-05-30 07:42] LABS: ANION GAP 15.9 (8-16); CREATININE 1.3 mg/dL (0.7-1.3); POTASSIUM 3.9 mmol/L (3.5-5.1)
[2017-05-30 08:00] VITALS: BP 120/73
--- NOTE | 2017-05-30 08:00 | NUR ---
PATIENT ALERT AND ABLE TO VERBALIZE NEEDS. NO ACUTE DISTRESS. RESP EVEN AND UNLABORED. LUNG SOUNDS CLEAR. BOWEL SOUNDS ACTIVE X4 QUADS. INITIAL ASSESSMENT PERFORMED. VSS. PATIENT WITH BILATERAL LEG WRAP WITH COMPRESSION STOCKINGS. PATIENT MEDICATED WITH MORPHINE THIS AM FOR BLE PAIN.TOLERATED WELL. IV SITE TO RIGHT [id number] WITH 1/2 NS WITH POTASSIUM RUNNING AT 60ML/HR. SITE PATENT AND INTACT. DENIES FLANK PAIN THIS AM. FC PATENT AND INTACT. DRAINING YELLOW URINE IN FC BAG. DISCUSSED PLAN OF CARE WITH PATIENT. CALL LIGHT WITHIN REACH. WILL CONT TO MONITOR.
[2017-05-30] MEDS: TAMSULOSIN 0.4 MG CAP PO SCH (08:02)
[2017-05-30] MEDS: FINASTERIDE 5 MG TAB PO SCH (08:02)
[2017-05-30 09:21] LABS: HEMATOCRIT 30.3 % (36-52); HEMOGLOBIN 9.9 g/dL (12.0-18.0); MEAN CORPUSCULAR HEMOGLOBIN 26 pg (27-31); MEAN CORPUSCULAR HGB CONC 33 g/dL (33-37); MEAN CORPUSCULAR VOLUME 78.6 fL (80-94); PLATELET COUNT (AUTO) 290 K/uL (140-450); RED BLOOD CELL COUNT(AUTO) 3.86 MIL/uL (4.20-6.10); RED CELL DISTRIBUTION WIDTH 16.5 % (11.6-13.7); WHITE BLOOD COUNT (AUTO) 10.9 K/uL (4.8-10.8)
--- NOTE | 2017-05-30 09:39 | NUR ---
DR CARRION CALLED TO INFORM THAT PATIENT WILL BE DISCHARGED HOME TODAY DR MCCLENDON TO ROUND ON PATIENT . RX REFILL TO BE SENT TO [facility] OFF [facility] IN [place].DR CARRION TO PUT IN DC ORDER. PATIENT MADE AWARE.
[2017-05-30 09:45] LABS: ALBUMIN 2.2 g/dL (3.4-5.0); ANION GAP 16.9 (8-16); CREATININE 1.3 mg/dL (0.7-1.3); EOSINOPHILS % (MANUAL) 2 % (0-4); LYMPHOCYTES % (MANUAL) 11 % (20-46); MONOCYTES % (MANUAL) 7 % (5-12); POTASSIUM 3.9 mmol/L (3.5-5.1); TOTAL BILIRUBIN 0.5 mg/dL (0.0-1.0)
--- NOTE | 2017-05-30 11:00 | NUR ---
PATIENT RESTING IN BED WITH EYES CLOSED. RESP EVEN AND UNLABORED. NO ACUTE DISTRESS NOTED. CALL LIGHT WITHIN REACH. WILL CONT TO MONITOR.
[2017-05-30] MEDS ORDERED: ATOR20TA40 PO (11:03)
[2017-05-30] MEDS ORDERED: GLIP5TAB4 PO (11:03)
[2017-05-30] MEDS ORDERED: BUDE1AER IH (11:03)
[2017-05-30] MEDS ORDERED: LEVO750T2 PO (11:03)
[2017-05-30] MEDS ORDERED: TAMS0.4C96 PO (11:03)
[2017-05-30] MEDS ORDERED: ALBU0.094 IH (11:03)
[2017-05-30] MEDS ORDERED: FINA5TAB5 PO (11:03)
[2017-05-30] MEDS ORDERED: ASPI81CT95 PO (11:03)
[2017-05-30] MEDS ORDERED: DOCU-299 PO (11:03)
[2017-05-30] MEDS ORDERED: METF850T PO (11:03)
[2017-05-30] MEDS ORDERED: AMLO5TAB PO (11:03)
[2017-05-30] MEDS ORDERED: METO50TE2 PO (11:03)
--- NOTE | 2017-05-30 11:15 | NUR ---
PHYSICAL THERAPY CO-SIGN The Physical Therapy Progress Notes documented by Configuration Management Administrator have been reviewed. I concur with the documentation of this SENIOR NETWORK SYSTEMS ENGINEER. Plan: continue PT as per plan of care if he remains in this hospital. Reviewed/Co-Signed by: Sarah Whitman, PT Documentation Done by: Bairon Suarez, SENIOR NETWORK SYSTEMS ENGINEER Addendum: 05/30/17 at 1428 by Sarah Whitman PT Amended: Links added.
[2017-05-30] MEDS ORDERED: MAG SULF 2000 MG/WATER PREMIX 50 ML IV SCH (11:30)
[2017-05-30 12:00] VITALS: BP 138/82
--- NOTE | 2017-05-30 12:24 | NUR ---
PATIENT MEDICATED WITH MORPHINE C/O 11/09 PAIN TO BLE . PATIENT ALERT AND ABLE TO MAKE NEEDS KNOWN. VS GATHERED. NO ACUTE DISTRESS.DENIES PAIN. CALL LIGHT WITHIN REACH. WILL CONT TO MONITOR.
--- NOTE | 2017-05-30 14:00 | NUR ---
PATIENT RESTING COMFORTABLY IN BED. RESP EVEN AND UNLABORED . NO ACUTE DISTRESS NOTED. DENIES PAIN. CALL LIGHT WITHIN REACH. WILL CONT TO MONITOR.
--- NOTE | 2017-05-30 15:35 | NUR ---
DISCHARGE INSTRUCTIONS REVIEWED WITH PATIENT. PATIENT VERBALIZED UNDERSTANDING AND AGREEMENT. MEDICATIONS SENT TO PHARMACY OF CHOICE. ALL BELONGINGS ACCOUNTED FOR AND IN POSSESSION. PATIENT ALERT AND ABLE TO MAKE NEEDS KNOWN. IV SITES TO LEFT AND RIGHT HAND REMOVED KENZIE WELL LUMEN INTACT. ID BANDS REMOVED. PATIENT VERBALIZED THAT FRIEND LIVES 5 MINUTES AWAY AND WOULD BE ARRIVING SHORTLY. ASSISTED PATIENT IN DRESSING. TEACHING PROVIDED TO PATIENT REGARDING FC CARE AND HOW TO EMPTY FC BAG. PATIENT ABLE TO RETURN DEMONSTRATE . VERBALIZED UNDERSTANDING AND AGREEMENT. PICTURES OF WOUNDS NOT TAKEN BECAUSE WE TO REMOVE BANDAGES.WAITING FOR PT FRIEND TO ARRIVE.
--- NOTE | 2017-05-30 16:15 | NUR ---
PATIENT TAKEN TO FRONT LOBBY VIA WC FRIEND ARRIVED TO PICK PATIENT UP. PATIENT LEFT WITHOUT DIFFICULTIES.
== END 2017-05-30 16:15 | disposition home or self-care (01) | DRG 720 ==
LOC: MED 17:11 → MTU 20:09
PROVIDERS: ADMIT Hospitalist; ATTEND Hospitalist
DX: A41.9 Sepsis, unspecified organism (principal); E43 Unspecified severe protein-calorie malnutrition; E11.22 Type 2 diabetes mellitus with diabetic chronic kidney disease; N17.9 Acute kidney failure, unspecified; N13.30 Unspecified hydronephrosis; N18.3 Chronic kidney disease, stage 3 (moderate); B35.1 Tinea unguium; E11.51 Type 2 diabetes mellitus with diabetic peripheral angiopathy without gangrene; N13.8 Other obstructive and reflux uropathy; N40.1 Benign prostatic hyperplasia with lower urinary tract symptoms; N39.0 Urinary tract infection, site not specified; J44.9 Chronic obstructive pulmonary disease, unspecified; R80.9 Proteinuria, unspecified; I87.2 Venous insufficiency (chronic) (peripheral); I87.8 Other specified disorders of veins; L97.509 Non-pressure chronic ulcer of other part of unspecified foot with unspecified severity; L30.9 Dermatitis, unspecified; I12.9 Hypertensive chronic kidney disease with stage 1 through stage 4 chronic kidney disease, or unspecified chronic kidney disease; E88.09 Other disorders of plasma-protein metabolism, not elsewhere classified; I25.10 Atherosclerotic heart disease of native coronary artery without angina pectoris; E83.42 Hypomagnesemia; E11.621 Type 2 diabetes mellitus with foot ulcer; Z88.6 Allergy status to analgesic agent; Z88.1 Allergy status to other antibiotic agents; Z88.5 Allergy status to narcotic agent; Z88.8 Allergy status to other drugs, medicaments and biological substances; Z80.8 Family history of malignant neoplasm of other organs or systems; Z87.891 Personal history of nicotine dependence; R33.8 Other retention of urine; D63.1 Anemia in chronic kidney disease; Z79.84 Long term (current) use of oral hypoglycemic drugs; Z79.82 Long term (current) use of aspirin
CPT/HCPCS: 36415; 76770; 80048; 80053; 81001; 82948; 83605; 83735; 83880; 84100; 84154; 84443; 85025; 85610; 87040; 87081; 87086; 93005; 94640; 96365; 96368; 96375; 97110; 97116; 97140; 97530; 99285; J0696; J1644; J1815; J2001; J2270; J2543; J3475; J3480; J7030; J7060; J7620; Q0092

== ENCOUNTER 2017-06-13 12:21 | Emergency (ER) | payer OTHER ==
[~2017-06-13] VITALS: Ht 182.9 cm; Wt 110.4 kg
[~2017-06-13 12:21] MED LIST changes: +FINA5TAB5 PO; +LEVO750T2 PO; +METF850T PO
[2017-06-13 12:41] VITALS: BP 143/89
--- NOTE | 2017-06-13 12:48 | NUR ---
PT AMBULATED TO BED 3
--- NOTE | 2017-06-13 13:21 | NUR ---
# 16 FR Isabel catheter with ml utilizing sterile technique. Immediate return of ml urine noted. Bedside drainage bag placed below level of bladder. Urine sample collected and sent to lab. Pt tolerated procedure .
[2017-06-13 13:35] LABS: APPEARANCE,URINE CLEAR (CLEAR); BILIRUBIN,URINE NEGATIVE (NEGATIVE); BLOOD, URINE TRACE-I (NEGATIVE); COLOR,URINE YELLOW (YELLOW); LEUKOCYTE ESTERASE ,URINE NEGATIVE (NEGATIVE); NITRITE, URINE NEGATIVE (NEGATIVE); UGLUCOSE NEGATIVE (NEGATIVE)
--- NOTE | 2017-06-13 13:35 | NUR ---
PATIENT PRESENTS TO ER FOR ALCALA LEAKAGE. DENIES PAIN, N/V,D. ORDERED SAMPLE FROM CURRENT ALCALA FOR UA AND ORDERED NEW ALCALA TO BE PLACED. PATIENT TOLERATED PROCEDURE WELL. PATIENT WAS LEFT IN LOW POSITION WITH BED RAILS UP.
[2017-06-13 13:55] LABS: RBC,URINE 0-5 (RARE) /HPF (0-5); WBC,URINE 0-5 (RARE) /HPF (0-5)
[2017-06-13 14:10] VITALS: BP 135/87
--- NOTE | 2017-06-13 14:10 | NUR ---
Patient discharged with v/s stable. Written and verbal after care instructions given and explained. Patient verbalized understanding. Ambulatory with steady gait. All questions addressed prior to discharge. Advised to follow up with PMD.
== END 2017-06-13 14:10 | disposition home or self-care (01) ==
LOC: MED 12:21
DX: T83.038A Leakage of other urinary catheter, initial encounter (principal); J44.9 Chronic obstructive pulmonary disease, unspecified; E11.9 Type 2 diabetes mellitus without complications; I10 Essential (primary) hypertension; Z86.14 Personal history of Methicillin resistant Staphylococcus aureus infection; Z88.1 Allergy status to other antibiotic agents; Z88.6 Allergy status to analgesic agent; Z88.5 Allergy status to narcotic agent
CPT/HCPCS: 51702; 81001; 99284; J7030

== ENCOUNTER 2017-07-11 13:54 | Emergency (ER) | payer OTHER ==
[~2017-07-11] VITALS: Ht 182.9 cm; Wt 108.9 kg
[2017-07-11 13:59] VITALS: BP 132/80
--- NOTE | 2017-07-11 14:04 | NUR ---
PATIENT AMBULATED TO ER BED 3
--- NOTE | 2017-07-11 14:05 | NUR ---
ASSUMED CARE OF PT AT THIS TIME. SKIN IS PALE/WARM/DRY; AAOX4 WITH EVEN AND STEADY GAIT; PATIENT STATES PAIN OF 8/10 AT THIS TIME; VSS; PATIENT POSITIONED FOR COMFORT; HOB ELEVATED; BEDRAILS UP X2; BED DOWN. ER MD MADE AWARE OF PT STATUS. WILL CONTINUE TO MONITOR.
[2017-07-11 14:43] LABS: APPEARANCE,URINE SL CLOUDY (CLEAR); BILIRUBIN,URINE NEGATIVE (NEGATIVE); BLOOD, URINE 3+ (NEGATIVE); COLOR,URINE RED (YELLOW); LEUKOCYTE ESTERASE ,URINE 2+ (NEGATIVE); NITRITE, URINE NEGATIVE (NEGATIVE); PH,URINE 7.5 (5.0-9.0); UGLUCOSE NEGATIVE (NEGATIVE)
[2017-07-11 15:06] LABS: RBC,URINE >100 /HPF (0-5); WBC,URINE 80-100 /HPF (0-5)
[2017-07-11] MEDS ORDERED: cefTRIAXone 1,000 MG in LIDOCAINE MPF 1% - **ER/OR** 2.1 ML IM ONE (16:05)
--- NOTE | 2017-07-11 16:05 | NUR ---
OLD ALCALA CATHTER REMOVED INTACT.
[2017-07-11 16:25] VITALS: BP 134/84
== END 2017-07-11 16:25 | disposition home or self-care (01) ==
LOC: MED 13:54
DX: T83.511A Infection and inflammatory reaction due to indwelling urethral catheter, initial encounter (principal); J44.9 Chronic obstructive pulmonary disease, unspecified; E11.9 Type 2 diabetes mellitus without complications; I10 Essential (primary) hypertension; Z88.1 Allergy status to other antibiotic agents; Z88.6 Allergy status to analgesic agent; Z88.5 Allergy status to narcotic agent
CPT/HCPCS: 51702; 81001; 87086; 87186; 96372; 99284; J0696; J2001

== ENCOUNTER 2017-07-31 10:23 | Emergency (ER) | payer OTHER ==
[~2017-07-31] VITALS: Ht 182.9 cm; Wt 108.2 kg
[2017-07-31 10:28] VITALS: BP 123/77
--- NOTE | 2017-07-31 10:32 | NUR ---
PT AMBULATES TO BED 2, REPORT GIVEN TO WILNER LLOYD
--- NOTE | 2017-07-31 10:50 | NUR ---
PATIENT PRESENTS TO ED WITH c/o bleeding on the tip of urinary catheter this morning per pt d/t molina fell off. PATIENT STATES PAIN OF 10/10 AT THIS TIME; VSS; PATIENT POSITIONED FOR COMFORT; HOB ELEVATED; BEDRAILS UP X2; BED DOWN. ER MD MADE AWARE OF PT STATUS.
--- NOTE | 2017-07-31 11:40 | NUR ---
PT REFUSED TO CHANGE NEW ALCALA CATHETER, JUST CHANGED NEW DRESSING TO STABLIZE THE CATHETER AT THIS TIME.
[2017-07-31 11:53] VITALS: BP 122/78
[2017-07-31 13:02] LABS: BILIRUBIN,URINE NEGATIVE (NEGATIVE); BLOOD, URINE TRACE-L (NEGATIVE); COLOR,URINE YELLOW (YELLOW); LEUKOCYTE ESTERASE ,URINE NEGATIVE (NEGATIVE); NITRITE, URINE NEGATIVE (NEGATIVE); UGLUCOSE NEGATIVE (NEGATIVE)
[2017-07-31 13:11] LABS: APPEARANCE,URINE CLEAR (CLEAR); RBC,URINE NONE SEEN /HPF (0-5); WBC,URINE NONE SEEN /HPF (0-5)
== END 2017-07-31 11:53 | disposition home or self-care (01) ==
LOC: MED 10:23
DX: Z46.82 Encounter for fitting and adjustment of non-vascular catheter (principal); J44.9 Chronic obstructive pulmonary disease, unspecified; E11.9 Type 2 diabetes mellitus without complications; I10 Essential (primary) hypertension; Z79.899 Other long term (current) drug therapy; Z88.8 Allergy status to other drugs, medicaments and biological substances
CPT/HCPCS: 81001; 99284

== ENCOUNTER 2017-08-18 13:37 | Emergency (ER) | payer OTHER ==
[~2017-08-18] VITALS: Ht 182.9 cm; Wt 108.9 kg
[2017-08-18 13:53] VITALS: BP 116/79
--- NOTE | 2017-08-18 13:59 | NUR ---
PT AMBULATED TO ER BED 09
--- NOTE | 2017-08-18 14:00 | NUR ---
ASSUMED TEMPORARY CARE OF PT FOR PRIMARY RN WHO IS ON 30 MIN. BREAK. C/O SOB X 2 DAYS. NO RESPIRATORY DISTRESS NOTED...PT SPEAKS IN FULL SENTENCES. C/O HEMATURIA; ALCALA CATHETER IN PLACE. AAOX4 WITH EVEN AND STEADY GAIT; PATIENT STATES PAIN OF 5/10 AT THIS TIME; VSS; PATIENT POSITIONED FOR COMFORT; HOB ELEVATED; BEDRAILS UP X2; BED DOWN. ER MD MADE AWARE OF PT STATUS. WILL CONTINUE TO MONITOR.
[2017-08-18] MEDS ORDERED: ALBUTEROL SULFATE/IPRATROPIU 3 ML SOL IH ONE (14:25)
--- NOTE | 2017-08-18 14:50 | NUR ---
REPORT GIVEN TO WILNER SMITH TO ASSUME CARE.
--- NOTE | 2017-08-18 14:55 | NUR ---
LAB AT BEDSIDE, PT. AAOX4. WILL CONTINUE TO MONITOR.
[2017-08-18 15:15] LABS: BASOPHILS # (AUTO) 0.1 K/uL (0.00-0.22); EOSINOPHILS # (AUTO) 0.5 K/uL (0-0.4); EOSINOPHILS % (AUTO) 4.4 % (0.0-4.0); HEMATOCRIT 36.8 % (36-52); HEMOGLOBIN 11.9 g/dL (12.0-18.0); LYMPHOCYTES # (AUTO) 1.6 K/uL (2.0-11.5); LYMPHOCYTES % (AUTO) 14.4 % (20.5-51.1); MEAN CORPUSCULAR HEMOGLOBIN 24 pg (27-31); MEAN CORPUSCULAR HGB CONC 32 g/dL (33-37); MEAN CORPUSCULAR VOLUME 73.3 fL (80-94); MONOCYTES % (AUTO) 8.5 % (1.7-9.3); NEUTROPHILS # (AUTO) 8.2 K/uL (1.8-7.7); NEUTROPHILS % (AUTO) 71.7 % (42.2-75.2); PLATELET COUNT (AUTO) 223 K/uL (140-450); RED BLOOD CELL COUNT(AUTO) 5.02 MIL/uL (4.20-6.10); RED CELL DISTRIBUTION WIDTH 16.1 % (11.6-13.7); WHITE BLOOD COUNT (AUTO) 11.4 K/uL (4.8-10.8)
[2017-08-18 15:32] LABS: PROTHROMBIN TIME 11.5 secs (10.8-13.4)
[2017-08-18 15:35] LABS: ALBUMIN 3.4 g/dL (3.4-5.0); ANION GAP 11.3 (8-16); CARBON DIOXIDE 33.1 mmol/L (21-32); CREATININE 1.2 mg/dL (0.7-1.3); POTASSIUM 3.4 mmol/L (3.5-5.1); TOTAL BILIRUBIN 0.4 mg/dL (0.0-1.0)
[2017-08-18 15:44] LABS: APPEARANCE,URINE CLOUDY (CLEAR); BILIRUBIN,URINE NEGATIVE (NEGATIVE); BLOOD, URINE 3+ (NEGATIVE); COLOR,URINE YELLOW (YELLOW); LEUKOCYTE ESTERASE ,URINE 2+ (NEGATIVE); NITRITE, URINE NEGATIVE (NEGATIVE); UGLUCOSE NEGATIVE (NEGATIVE)
[2017-08-18 15:47] LABS: RBC,URINE 50-80 /HPF (0-5); WBC,URINE 80-100 /HPF (0-5)
--- NOTE | 2017-08-18 16:04 | NUR ---
PT. RESTING COMFORTABLY IN BED, SAFETY PRECAUTIONS INITIATED, RR EVEN AND UNLABORED. VSS. WILL CONTINUE TO MONITOR.
--- NOTE | 2017-08-18 17:06 | NUR ---
PT. IS AAOX4, RR EVEN AND UNLABORED. PT. STATES " I FEEL BETTER NOW". WILL CONTINUE TO MONITOR
--- NOTE | 2017-08-18 17:30 | NUR ---
PT. PROVIDED WITH A DINNER TRAY, EATING WELL. NO FURTHER COMPLAINTS AT THIS TIME.
[2017-08-18] MEDS ORDERED: cefTRIAXone 250 MG in LIDOCAINE MPF 1% - **ER/OR** 0.9 ML IM ONE (18:25)
[2017-08-18 19:01] VITALS: BP 106/61
--- NOTE | 2017-08-18 19:01 | NUR ---
Patient discharged with v/s stable. Written and verbal after care instructions given and explained. Patient alert, oriented and verbalized understanding of instructions. Ambulatory with steady gait. All questions addressed prior to discharge. ID band removed. Patient advised to follow up with PMD. Rx of ibuprofen, keflex, and ventolin given. Patient educated on indication of medication including possible reaction and side effects. Opportunity to ask questions provided and answered.
== END 2017-08-18 19:01 | disposition home or self-care (01) ==
LOC: MED 13:37
DX: J44.1 Chronic obstructive pulmonary disease with (acute) exacerbation (principal); N39.0 Urinary tract infection, site not specified
CPT/HCPCS: 36415; 51702; 71045; 80053; 81001; 83880; 84484; 85025; 85610; 85730; 87086; 93005; 94640; 96372; 99285; J0696; J2001; J7620; Q0092; 87186

== ENCOUNTER 2017-08-21 14:30 | Emergency (ER) | payer OTHER ==
[~2017-08-21] VITALS: Ht 182.9 cm; Wt 108.9 kg
[2017-08-21 14:39] VITALS: BP 148/79
--- NOTE | 2017-08-21 14:44 | NUR ---
Patient given orange juice. Report given to Jc DARBY.
--- NOTE | 2017-08-21 14:45 | NUR ---
PT AMBULATES TO BED 12
[2017-08-21] MEDS ORDERED: MECLIZINE 25 MG TAB PO ONE (15:05)
--- NOTE | 2017-08-21 15:05 | NUR ---
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 DENIES LOC, N/V CHEST PAIN OR SOB UPON ASSESSMENT. PT STATES HE WAS WALKING WHEN HE SUDDENLY FELT DIZZINESS. PT STATES HE FELL BUT STOPPED HIMSELF FROM FALLING TO THE GROUND, WHILE IN THE PROCESS HIT HIS HEAD ON A NIGHT STAND. NO BRUISING, SWELLING OR DEFORMITY OBSERVED TO HEAD, REPORTS SOME NECK PAIN TO LEFT SIDE OF NECK -- NO BRUISING, BULGING OR DEFORMITY. PT PLACED ON ALL MONITORS, VS WNL. DR WOODS AT BEDSIDE TO SHIRA
--- NOTE | 2017-08-21 15:08 | NUR ---
PT WITH INDWELLING URINARY CATHETER IN PLACE WITH H/O ENLARGED PROSTATE. LAST REPLACED TWO DAYS AGO. PT ALSO HAS A BULGING UMBILICAL HERNIA, DENIES PAIN. PTS BILAT LEGS ARE WRAPPED WITH COMPRESSION STOCKINGS, STATES HE WEARS THEM FOR CIRULATION PURPOSES. ALSO REPORTS LEFT LEG HAS A WOUND THAT IS BEING TREATED BY HOME HEALTH RN. DENIES ANY WORSENING CHANGE IN CONDITION FROM PREVIOUS VISIT ON 08/18/17.
--- NOTE | 2017-08-21 15:41 | NUR ---
PT TAKEN TO CT IN [place]
[2017-08-21 15:52] LABS: BASOPHILS # (AUTO) 0.1 K/uL (0.00-0.22); BASOPHILS % (AUTO) 0.6 % (0.0-2.0); EOSINOPHILS # (AUTO) 0.6 K/uL (0-0.4); EOSINOPHILS % (AUTO) 6.1 % (0.0-4.0); HEMATOCRIT 37.1 % (36-52); HEMOGLOBIN 12.4 g/dL (12.0-18.0); LYMPHOCYTES # (AUTO) 1.4 K/uL (2.0-11.5); LYMPHOCYTES % (AUTO) 13.4 % (20.5-51.1); MEAN CORPUSCULAR HEMOGLOBIN 24 pg (27-31); MEAN CORPUSCULAR HGB CONC 33 g/dL (33-37); MEAN CORPUSCULAR VOLUME 73.2 fL (80-94); MONOCYTES # (AUTO) 0.9 K/uL (0.8-1.0); MONOCYTES % (AUTO) 8.7 % (1.7-9.3); NEUTROPHILS # (AUTO) 7.5 K/uL (1.8-7.7); NEUTROPHILS % (AUTO) 71.2 % (42.2-75.2); PLATELET COUNT (AUTO) 217 K/uL (140-450); RED BLOOD CELL COUNT(AUTO) 5.07 MIL/uL (4.20-6.10); RED CELL DISTRIBUTION WIDTH 16.3 % (11.6-13.7); WHITE BLOOD COUNT (AUTO) 10.5 K/uL (4.8-10.8)
--- NOTE | 2017-08-21 15:53 | NUR ---
PT RETURNED FROM CT, NO CHANGE FROM PREVIOUS. PENDING LABS
[2017-08-21 15:59] LABS: ANION GAP 12.7 (8-16); CARBON DIOXIDE 29.5 mmol/L (21-32); CREATININE 1.1 mg/dL (0.7-1.3); POTASSIUM 3.2 mmol/L (3.5-5.1)
[2017-08-21 16:05] LABS: ALBUMIN 3.7 g/dL (3.4-5.0); TOTAL BILIRUBIN 0.3 mg/dL (0.0-1.0)
--- NOTE | 2017-08-21 16:38 | NUR ---
PT STATES "THAT MEDICATION HELPED MY DIZZINESS A LOT." DENIES DIZZINESS AT THIS TIME, DR WOODS AT BEDSIDE SPEAKING WITH PT.
[2017-08-21 16:49] VITALS: BP 131/81
--- NOTE | 2017-08-21 16:49 | NUR ---
Patient discharged with v/s stable. Written and verbal after care instructions given and explained. Patient alert, oriented and verbalized understanding of instructions. Ambulatory with steady gait. All questions addressed prior to discharge. ID band removed. Patient advised to follow up with PMD. Rx of ANITVERT given. Patient educated on indication of medication including possible reaction and side effects. Opportunity to ask questions provided and answered.
== END 2017-08-21 16:49 | disposition home or self-care (01) ==
LOC: MED 14:30
DX: R42 Dizziness and giddiness (principal); I11.0 Hypertensive heart disease with heart failure; I50.9 Heart failure, unspecified; J44.9 Chronic obstructive pulmonary disease, unspecified; E11.9 Type 2 diabetes mellitus without complications; Z79.4 Long term (current) use of insulin; Z88.1 Allergy status to other antibiotic agents; Z88.8 Allergy status to other drugs, medicaments and biological substances
CPT/HCPCS: 36415; 70450; 80053; 85025; 99285; J8597

== ENCOUNTER 2017-10-16 13:02 | Emergency (ER) | payer OTHER ==
[~2017-10-16] VITALS: Ht 182.9 cm; Wt 109.8 kg
[~2017-10-16 13:02] MED LIST changes: +CARV12.5 PO; -LEVO750T2 PO
[2017-10-16 13:08] VITALS: BP 148/75
--- NOTE | 2017-10-16 13:23 | NUR ---
PT AMBULATES TO BED 6
--- NOTE | 2017-10-16 13:25 | NUR ---
62 YO M BIB SELF W/ C/O RIGHT HAND LACERATION FROM A METAL FAN TRYING TO CHANGE THE SPEED, THE METAL BLADES GOT HIS RIGHT INDEX AND MIDDLE FINGER. BLEEDING WELL CONTROLLED AT THIS TIME BY AN JESS WRAP THAT THE PT WRAPPED HIMSELF. A LARGE AMOUNT OF DRIED BLOOD NOTED ON THE PATIENT. CAP REFILL LESS THAN 3 SECONDS ON AFFECTED EXTREMITY, LIMITED ROM. PULSES PALPABLE 2+. PT DOES NOT REMEMBER LAST TETANUS SHOT. AAOX4. GCS 15. CMS INTACT. AMBULATORY W/ STEADY GAIT. RR EVEN AND UNLABORED. LUNGS CLEAR. PT NOTED W/ ALCALA CATHETER. BED DOWN; BEDRAIL UP X 1; ER MD AWARE AND NOTIFIED OF PT STATUS. HX; ASTHMA, COPD, EMPHYSEMA, DM, HTN, POOR CIRCULATION, HERNIA, ENLARGED PROSTATE, 2X RI, LAST WAS APR 13, 2017, CONGESTIVE HEART FAILURE RX; TAMSULIN, FLUDROCORTISONE, METFORMIN, ATORVASTATIN, FINASTERIDE, GLIPIZIDE, DOCUSATE, ASA, FERROUS SULFATE, CARVEDILOL, DICYCLOMINE, SULFAMETHOXAZOL, MECLIZINE
[2017-10-16] MEDS ORDERED: CEPHALEXIN 500 MG CAP PO ONE (14:05)
--- NOTE | 2017-10-16 14:06 | NUR ---
Patient being evaluated by physician at bedside.
--- NOTE | 2017-10-16 14:21 | NUR ---
RAD AT BEDSIDE
--- NOTE | 2017-10-16 15:07 | NUR ---
SPLINT PUT ON PT BY EMT
--- NOTE | 2017-10-16 17:00 | NUR ---
PT RESTING IN BED WITH EVEN AND UNLABOR BREATHING
[2017-10-16 18:56] VITALS: BP 145/73
--- NOTE | 2017-10-16 18:56 | NUR ---
Patient discharged with v/s stable. Written and verbal after care instructions given and explained. Patient alert, oriented and verbalized understanding of instructions. Ambulatory with steady gait. All questions addressed prior to discharge. ID band removed. Patient advised to follow up with PMD. Rx of motrin and keflex given. Patient educated on indication of medication including possible reaction and side effects. Opportunity to ask questions provided and answered.
== END 2017-10-16 18:56 | disposition home or self-care (01) ==
LOC: MED 13:02
DX: S67.21XA Crushing injury of right hand, initial encounter (principal); S67.192A Crushing injury of right middle finger, initial encounter; S67.190A Crushing injury of right index finger, initial encounter; J44.9 Chronic obstructive pulmonary disease, unspecified; E11.9 Type 2 diabetes mellitus without complications; I11.0 Hypertensive heart disease with heart failure; I50.9 Heart failure, unspecified; Z88.1 Allergy status to other antibiotic agents; Z88.6 Allergy status to analgesic agent; Z88.5 Allergy status to narcotic agent; Z79.899 Other long term (current) drug therapy; W22.8XXA Striking against or struck by other objects, initial encounter; Y93.89 Activity, other specified; Y92.89 Other specified places as the place of occurrence of the external cause; Y99.8 Other external cause status
CPT/HCPCS: 73130; 82948; 90471; 90715; 99284; Q0092

== ENCOUNTER 2017-10-18 00:08 | Emergency (ER) | payer OTHER ==
[~2017-10-18] VITALS: Ht 182.9 cm; Wt 108.9 kg
[2017-10-18 00:10] VITALS: BP_SYST 155; BP_SYST 171; BP_DIAS 100; BP_DIAS 92
--- NOTE | 2017-10-18 00:18 | NUR ---
TO LOBBY A/W BED, AMBULATORY, SOA2 97%, ERMD NOTED.
--- NOTE | 2017-10-18 02:48 | NUR ---
TO BED # 2 AMBULATORY, REPORT GIVEN TO NOELLE DARBY
--- NOTE | 2017-10-18 02:50 | NUR ---
PATIENT PRESENTS TO ED WITH DIFF OF BREATHING FOR 2 DAYS, WITH WHEEZING SKIN IS PINK/WARM/DRY; AAOX4 WITH EVEN AND STEADY GAIT; PATIENT STATES PAIN OF 6/10 AT THIS TIME; PATIENT POSITIONED FOR COMFORT; HOB ELEVATED; BEDRAILS UP X2; BED DOWN. ER MD MADE AWARE OF PT STATUS.
[2017-10-18] MEDS ORDERED: predniSONE 20 MG TAB PO ONE (03:35)
[2017-10-18] MEDS ORDERED: ALBUTEROL 0.083% 2.5 MG/3 ML NEBU INH ONE (03:35)
--- NOTE | 2017-10-18 04:20 | NUR ---
LABS DRAWN BY RN, URINE SAMPLE COLLECTED. 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
[2017-10-18 04:25] LABS: APPEARANCE,URINE HAZY (CLEAR); BILIRUBIN,URINE NEGATIVE (NEGATIVE); BLOOD, URINE 1+ (NEGATIVE); COLOR,URINE YELLOW (YELLOW); LEUKOCYTE ESTERASE ,URINE NEGATIVE (NEGATIVE); NITRITE, URINE NEGATIVE (NEGATIVE); UGLUCOSE NEGATIVE (NEGATIVE)
[2017-10-18 04:28] LABS: BASOPHILS # (AUTO) 0.1 K/uL (0.00-0.22); BASOPHILS % (AUTO) 0.9 % (0.0-2.0); EOSINOPHILS # (AUTO) 1.8 K/uL (0-0.4); HEMATOCRIT 38.6 % (36-52); HEMOGLOBIN 12.2 g/dL (12.0-18.0); LYMPHOCYTES # (AUTO) 1.6 K/uL (2.0-11.5); LYMPHOCYTES % (AUTO) 17.4 % (20.5-51.1); MEAN CORPUSCULAR HEMOGLOBIN 25 pg (27-31); MEAN CORPUSCULAR HGB CONC 32 g/dL (33-37); MEAN CORPUSCULAR VOLUME 78.5 fL (80-94); MONOCYTES # (AUTO) 0.8 K/uL (0.8-1.0); MONOCYTES % (AUTO) 8.8 % (1.7-9.3); NEUTROPHILS # (AUTO) 4.7 K/uL (1.8-7.7); NEUTROPHILS % (AUTO) 52.4 % (42.2-75.2); PLATELET COUNT (AUTO) 213 K/uL (140-450); RED BLOOD CELL COUNT(AUTO) 4.92 MIL/uL (4.20-6.10); RED CELL DISTRIBUTION WIDTH 18.1 % (11.6-13.7); WHITE BLOOD COUNT (AUTO) 8.9 K/uL (4.8-10.8)
[2017-10-18 04:34] LABS: RBC,URINE 3-10 (FEW) /HPF (0-5); WBC,URINE 0-5 (RARE) /HPF (0-5)
[2017-10-18 04:43] LABS: ANION GAP 11.9 (8-16); CARBON DIOXIDE 27.1 mmol/L (21-32); CREATININE 1.2 mg/dL (0.7-1.3)
[2017-10-18 04:45] LABS: EOSINOPHILS % (AUTO) 20.5 % (0.0-4.0)
[2017-10-18 04:50] LABS: ALBUMIN 3.5 g/dL (3.4-5.0); TOTAL BILIRUBIN 0.4 mg/dL (0.0-1.0)
--- NOTE | 2017-10-18 06:12 | NUR ---
Patient discharged with v/s stable. Written and verbal after care instructions given and explained. Patient alert, oriented and verbalized understanding of instructions. Ambulatory with steady gait. All questions addressed prior to discharge. ID band removed. Patient advised to follow up with PMD. Rx of PREDNISONE AND ALBUTEROL given. Patient educated on indication of medication including possible reaction and side effects. Opportunity to ask questions provided and answered.
[2017-10-18 06:13] VITALS: BP 142/88
== END 2017-10-18 06:13 | disposition home or self-care (01) ==
LOC: MED 00:08
DX: J45.909 Unspecified asthma, uncomplicated (principal); I11.0 Hypertensive heart disease with heart failure; I50.9 Heart failure, unspecified; E11.9 Type 2 diabetes mellitus without complications; Z88.1 Allergy status to other antibiotic agents; Z88.6 Allergy status to analgesic agent; Z88.5 Allergy status to narcotic agent; Z79.1 Long term (current) use of non-steroidal anti-inflammatories (NSAID); Z79.899 Other long term (current) drug therapy
CPT/HCPCS: 36415; 71045; 80053; 81001; 82948; 84484; 85025; 87086; 94640; 99285; J7512; J7613; Q0092

== ENCOUNTER 2017-11-06 20:47 | Emergency (ER) | payer OTHER ==
[~2017-11-06] VITALS: Ht 182.9 cm; Wt 108.9 kg
[2017-11-06 21:01] VITALS: BP 126/74
--- NOTE | 2017-11-06 21:03 | NUR ---
TO LOBBY A/W BED, DAVINA RENDON NOTED
--- NOTE | 2017-11-06 21:52 | NUR ---
PT AMBULATED TO ER BED 04
--- NOTE | 2017-11-06 22:00 | NUR ---
PATIENT IS A 62 Y/O MALE WHO PRESENTS TO THE ED C/O HEMATURIA. PT REPORTS PAIN IN HIS ALCALA CATH AND BLEEDING X1 DAY. PT REPORTS 8/10 PENILE PAIN THAT DOES NOT RADIATE. PT DENIES CP, SOB, N/V/D. PT AWAKE, ALERT, AMBULATORY, RR EVEN/UNLABORED. PT REPOSITIONED FOR COMFORT, BED IN LOWEST POSITION. ER MD DR. TODD NOTIFIED. WILL CONTINUE TO MONITOR.
--- NOTE | 2017-11-07 | NUR ---
PER DR. TODD CHANGE ALCALA CATHETER.
--- NOTE | 2017-11-07 00:05 | NUR ---
REMOVED 16 FR ALCALA, PT TOLERATED WELL.
--- NOTE | 2017-11-07 00:10 | NUR ---
# 16 FR Isabel catheter with 10 ml utilizing sterile technique. Immediate return of 5 ml OF urine noted. Bedside drainage bag placed below level of bladder. Pt tolerated procedure WELL.
[2017-11-07 00:30] VITALS: BP 119/82
== END 2017-11-07 00:30 | disposition home or self-care (01) ==
LOC: MED 20:47
DX: R31.9 Hematuria, unspecified (principal); I11.0 Hypertensive heart disease with heart failure; I50.9 Heart failure, unspecified; E11.9 Type 2 diabetes mellitus without complications; J44.9 Chronic obstructive pulmonary disease, unspecified; Z88.1 Allergy status to other antibiotic agents; Z88.5 Allergy status to narcotic agent; Z88.6 Allergy status to analgesic agent; Z79.899 Other long term (current) drug therapy
CPT/HCPCS: 51702; 81002; 99284

== ENCOUNTER 2017-11-13 14:32 | Inpatient (IN) | payer OTHER ==
[~2017-11-13] VITALS: Ht 182.9 cm; Wt 103.4 kg
[2017-11-13 14:39] VITALS: BP 133/74
[2017-11-13] MEDS ORDERED: NACL 0.9% 1,000 ML IV ONE (14:55)
--- NOTE | 2017-11-13 15:07 | NUR ---
PT PRESENTS TO ED WITH LOWER ABDOMINAL PAIN X 1 POST HAVING AN EXAM WITH HIS CLUB ROOM ATTENDANT. PER PT "SHE TOUCHED MY HERNIA AND SINCE THEN IT HAS BEEN HURTING" PT DENIES ANY VOMITTING OR NAUSEA AT THIS TIME. BOWEL SOUNDS PRESENT IN ALL QUADRANTS. ABDOMEN IS SOFT UPON PALPATION. PT HAS ALCALA IN PLACE UPON ARRIVAL WITH NO COMPLICATIONS WITH DRAINAGE. PT PLACED ON MONITOR AND ALL VSS. PENDING MD SILVA.
--- NOTE | 2017-11-13 15:20 | NUR ---
PT BACK FROM CT SCAN AT THIS TIME VIA KEN
[2017-11-13 15:58] LABS: BASOPHILS # (AUTO) 0.1 K/uL (0.00-0.22); BASOPHILS % (AUTO) 0.7 % (0.0-2.0); EOSINOPHILS # (AUTO) 0.5 K/uL (0-0.4); EOSINOPHILS % (AUTO) 5.4 % (0.0-4.0); HEMOGLOBIN 12.3 g/dL (12.0-18.0); LYMPHOCYTES # (AUTO) 1.4 K/uL (2.0-11.5); LYMPHOCYTES % (AUTO) 14.2 % (20.5-51.1); MEAN CORPUSCULAR HEMOGLOBIN 26 pg (27-31); MEAN CORPUSCULAR HGB CONC 32 g/dL (33-37); MEAN CORPUSCULAR VOLUME 79.1 fL (80-94); MONOCYTES # (AUTO) 0.8 K/uL (0.8-1.0); MONOCYTES % (AUTO) 7.9 % (1.7-9.3); NEUTROPHILS # (AUTO) 7.2 K/uL (1.8-7.7); NEUTROPHILS % (AUTO) 71.8 % (42.2-75.2); PLATELET COUNT (AUTO) 247 K/uL (140-450); RED BLOOD CELL COUNT(AUTO) 4.81 MIL/uL (4.20-6.10); RED CELL DISTRIBUTION WIDTH 16.5 % (11.6-13.7)
[2017-11-13] MEDS ORDERED: NACL 0.9% 500 ML IV ONE (16:05)
[2017-11-13 16:31] LABS: ALBUMIN 3.5 g/dL (3.4-5.0); ANION GAP 10.5 (8-16); CARBON DIOXIDE 31.3 mmol/L (21-32); CREATININE 1.4 mg/dL (0.7-1.3); TOTAL BILIRUBIN 0.3 mg/dL (0.0-1.0)
[2017-11-13 16:36] LABS: PROTHROMBIN TIME 11.5 secs (10.8-13.4)
--- NOTE | 2017-11-13 16:36 | NUR ---
CRITICAL LAB VALUE RECEIVED FROM [facility]; POTASSIUM 2.8. AYDEN PETER NOTIFIED.
[2017-11-13 16:37] LABS: POTASSIUM 2.8 mmol/L (3.5-5.1)
[2017-11-13] MEDS ORDERED: POTASSIUM CHLORIDE 10 MEQ TABER PO ONE (16:40)
--- NOTE | 2017-11-13 16:46 | NUR ---
CRITICAL LAB VALUE LACTIC ACID 2.9. AYDEN PETER NOTIFIED.
[2017-11-13] MEDS ORDERED: NACL 0.9% 2,600 ML IV ONE (16:50)
--- NOTE | 2017-11-13 17:44 | NUR ---
pt resting comfortably in [facility] w/ vss, rr even and unlabored. safety precautions inplace, pt needs met. will continue to monitor.
[2017-11-13] MEDS ORDERED: PIPERACILLIN/TAZOBACTAM 3.375 GM in DEXTROSE 5% 50 ML IV ONE (18:05)
[2017-11-13] MEDS ORDERED: PIPERACILLIN/TAZOBACTAM 3.375 GM VIAL IV ONE (18:18)
--- NOTE | 2017-11-13 18:33 | NUR ---
dr tirado at bedside at this time evaluating pt.
[2017-11-13] MEDS ORDERED: NACL 0.9% 1,000 ML IV SCH (18:39)
[2017-11-13] MEDS ORDERED: ONDANSETRON 4 MG/2 ML VIAL IVP PRN (18:40)
[2017-11-13] MEDS ORDERED: MEPERIDINE 25 MG/ML SYR IVP PRN (18:40)
[2017-11-13] MEDS ORDERED: diphenhydrAMINE 50 MG/ML VIAL IVP PRN (18:40)
[2017-11-13] MEDS ORDERED: HYDROmorphone 1 MG/ML AMP IVP PRN (18:40)
--- NOTE | 2017-11-13 18:50 | NUR ---
Patient will be admitted to [facility]. Admited to OR, but will go to tele. Will go to room 111A. Belongings list completed. Report to WILNER Liang in OR.
[2017-11-13] MEDS ORDERED: ROCURONIUM 50 MG/5 ML VIAL IV ONE (19:25)
[2017-11-13] MEDS ORDERED: PROPOFOL 200 MG/20 ML VIAL IV ONE (19:25)
[2017-11-13] MEDS ORDERED: SUCCINYLCHOLINE CHLORIDE 200 MG/10 ML VIAL IVP ONE (19:25)
[2017-11-13] MEDS ORDERED: LABETALOL 100 MG/20 ML VIAL ONE (19:25)
[2017-11-13] MEDS ORDERED: SEVOFLURANE 250 ML BTL INH ONE (19:25)
[2017-11-13] MEDS ORDERED: MEPERIDINE 50 MG/ML SYR ONE (19:33)
[2017-11-13] MEDS ORDERED: fentaNYL 0.05 MG/ML VIAL ONE (19:33)
[2017-11-13] MEDS ORDERED: MIDAZOLAM 2 MG/2 ML VIAL ONE (19:33)
[2017-11-13] MEDS ORDERED: ceFAZolin 1,000 MG VIAL ONE (19:39)
[2017-11-13] MEDS ORDERED: BUPIVACAINE-MPF 0.5% 30 ML VIAL INJ ONE (19:39)
[2017-11-13] MEDS ORDERED: HYDROcodone/APAP 5/325 MG 1 TAB TAB PO PRN (22:25)
[2017-11-13] MEDS ORDERED: ZOLPIDEM 5 MG TAB PO PRN (22:25)
[2017-11-13] MEDS ORDERED: MORPHINE SULFATE 2 MG/ML SYR IVP PRN (22:25)
[2017-11-13] MEDS ORDERED: DOCUSATE SODIUM 250 MG GELCAP PO PRN (22:25)
[2017-11-13] MEDS: HYDROmorphone PFS 2 MG/ML SYR ONE ×2 (22:47→22:57)
[2017-11-13] MEDS ORDERED: ONDANSETRON 4 MG/2 ML VIAL ONE (23:07)
--- NOTE | 2017-11-13 23:35 | NUR ---
ADMITTED PT FROM SX VIA GURNEY. REPORT RECEIVED FROM OR NURSE. PT IS ALERT & AWAKE, VERBALLY RESPONSIVE. AIRDOX FITTER APPLIED. RT FOREARM IV ACCESS IN PLACE. ALCALA CATH IN PLACE. PER PT, F/C WAS REPLACED ON 11/06/17. REFUSED F/C REINSERTION PER UNIT PROTOCOL. PT ORIENTED TO ROOM & UNIT. VERBALIZED UNDERSTANDING. ABLE TO RETURN DEMONSTRATE PROPER USE OF CALL BUTTON. MEDICAL HX OBTAINED FROM PT & MEDICAL RECORDS.
[2017-11-14] VITALS: BP 152/68
--- NOTE | 2017-11-14 00:20 | NUR ---
RECEIVED ADMISSION ORDERS FROM DR HARRIS (ON-CALL FOR DR CARRION). ALL ORDERS NOTED.
[2017-11-14] MEDS ORDERED: oxyCODONE/APAP 5/325 MG 1 TAB TAB PO PRN (00:25)
[2017-11-14] MEDS: DEXT 5% /NACL 0.9% 1,000 ML IV SCH ×2 (00:41→14:18)
[2017-11-14] MEDS ORDERED: PIPER/TAZO 3.375GM/D5W PREMIX 50 ML IV SCH ×2 (01:00→06:00)
[2017-11-14] MEDS ORDERED: KCL 20 MEQ/WATER INJ PREMIX 100 ML IV SCH (01:00)
--- NOTE | 2017-11-14 01:07 | NUR ---
INITIATED K-RIDER 20MEQ AT THIS TIME TO RT FOREARM IV ACCESS. PT LYING COMFORTABLY IN BED, ALERT & AWAKE. CALL LIGHT WITHIN REACH.
--- NOTE | 2017-11-14 02:00 | NUR ---
PT C/O UNCOMFORTABLE BURNING SENSATION TO RT FOREARM IV SITE. K-RIDER INFUSION RATE DECREASED TO 20ML/HR FOR COMFORT. PT STATES RT FOREARM FEELS BETTER. NO FURTHER CONCERNS AT THIS TIME. Addendum: 11/14/17 at 0315 by Anne Smith RN ADDENDUM: UNABLE TO INITIATE ZOSYN IV D/T K-RIDER STILL RUNNING. OFFERED TO START IV ACCES AT DIFFERENT SITE BUT PT REFUSED.
[2017-11-14 04:00] VITALS: BP 153/76
--- NOTE | 2017-11-14 04:00 | NUR ---
PT PULLED OUT RT FOREARM IV BY ACCIDENT. RESUMED IV K-RIDER INFUSION AT 20ML/HR TO LEFT HAND NEW IV SITE.
[2017-11-14] MEDS ORDERED: DEXTROSE 50% 50 ML SYR IVP PRN (04:50)
[2017-11-14] MEDS: MORPHINE SULFATE 4 MG/ML SYR IV PRN (05:18)
--- NOTE | 2017-11-14 05:18 | NUR ---
PT CYRING OUT & C/O BURNING PAIN TO LEFT HAND IV SITE. K-RIDER INFUSING @ 20ML/HR. INFUSION STOPPED & LINE FLUSHED SLOWLY WITH 10ML NS. PT VERBALIZED FEELING BETTER BUT REQUEST FOR IV PAIN MED. MORPHINE ADMINISTERED. RESUMED D5NS IVF @ 70ML/HR. PT ADAMANTLY REFUSES TO RE-INITIATE K-RIDER INFUSION. DR KIMBERLY MONTES DE OCA.
[2017-11-14] MEDS ORDERED: PIPERACILLIN/TAZOBACTAM 4.5 GM in DEXTROSE 5% 100 ML IV SCH (06:00)
[2017-11-14] MEDS ORDERED: PIPERACILLIN/TAZOBACTAM 3.375 GM in DEXTROSE 5% 50 ML IV SCH (06:00)
[2017-11-14] MEDS ORDERED: PIPERACILLIN/TAZOBACTAM 3.375 GM VIAL IV ONE (06:08)
[2017-11-14] MEDS: BLOOD GLUCOSE MONITORING 1 DEV DEV FS SCH ×3 (06:09→20:57)
--- NOTE | 2017-11-14 06:13 | NUR ---
ZOSYN PREMIXED NOT AVAILABLE. ADMINISTERED ZOSYN 3.375G MIXED AT BEDSIDE WITH D5W 50ML. IVPB INFUSION INITIATED AT THIS TIME @ 100ML/HR.
--- NOTE | 2017-11-14 06:40 | NUR ---
SPOKE TO DR. HARRIS ON THE PHONE & NOTIFIED OF PT'S REFUSAL OF REMAINING K-RIDER. PER DR HARRIS, F/U WITH DR. CARRION (ATTENDING).
--- NOTE | 2017-11-14 07:15 | NUR ---
REPORT GIVEN AT BEDSIDE TO AM SHIFT NURSE.
--- NOTE | 2017-11-14 07:16 | NUR ---
REPORT RECEIVED FROM MANAGER RELOCATION NURSE APRIL, PT RESTING QUIETLY IN BED WITH EYES COVERED WITH TOWEL, RESP EVEN UNLABORED ON RA, SKIN WARM DRY COLOR WNL, PLAN OF CARE REVIEWED, ALL SAFETY MEASURES IN PLACE, NO IMMEDIATE NEEDS AT THIS TIME, WILL CONTINUE TO MONITOR.
[2017-11-14 08:00] VITALS: BP 151/88
[2017-11-14 08:00] LABS: ANION GAP 9.3 (8-16); CARBON DIOXIDE 29.3 mmol/L (21-32); CREATININE 1.2 mg/dL (0.7-1.3); POTASSIUM 3.6 mmol/L (3.5-5.1)
[2017-11-14] MEDS: HYDROmorphone 1 MG/ML AMP IVP PRN ×4 (08:43→22:08)
[2017-11-14] MEDS ORDERED: ENOXAPARIN 40 MG/0.4 ML SYR SUBQ SCH (09:00)
[2017-11-14 09:31] LABS: HEMATOCRIT 36.6 % (36-52); MEAN CORPUSCULAR HEMOGLOBIN 27 pg (27-31); MEAN CORPUSCULAR VOLUME 81.9 fL (80-94); RED BLOOD CELL COUNT(AUTO) 4.46 MIL/uL (4.20-6.10); WHITE BLOOD COUNT (AUTO) 12.6 K/uL (4.8-10.8)
[2017-11-14 09:32] LABS: MEAN CORPUSCULAR HGB CONC 33 g/dL (33-37); PLATELET COUNT (AUTO) 231 K/uL (140-450); RED CELL DISTRIBUTION WIDTH 15.4 % (11.6-13.7)
[2017-11-14 10:57] LABS: EOSINOPHILS % (MANUAL) 5 % (0-4); LYMPHOCYTES % (MANUAL) 6 % (20-46); MONOCYTES % (MANUAL) 9 % (5-12)
[2017-11-14 12:00] VITALS: BP 159/93
--- NOTE | 2017-11-14 12:30 | NUR ---
OH AT BEDSIDE
[2017-11-14] MEDS: PIPER/TAZO 3.375GM/D5W PREMIX 50 ML IV SCH ×2 (12:36→17:56)
--- NOTE | 2017-11-14 15:30 | NUR ---
PT TOLERATING ICE CHIPS AND CLEAR LIQUIDS WELL, DENIES N/V. PT BELCHING BUT HAS NOT PASSED GAS, BOWEL SOUNDS PRESENT TO ALL 4 QUADRANTS. ATTEMPTED TO ASSIST PT OOB TO CHAIR, PT ABLE TO GET TO EDGE OF THE BED INDEPENDENTLY BUT UNABLE TO GET OOB W ASSIST AT THIS TIME. PT IS AGREEABLE TO ATTEMPT OOB LATER THIS EVENING. ENCOURAGED FREQUENT REPOSITIONING IN BED, PT AGREEABLE. SAFETY MEASURES IN PLACE, NO S/S OF ACUTE DISTRESS AT THIS TIME. WILL CONTINUE TO MONITOR.
[2017-11-14 16:00] VITALS: BP 160/93
[2017-11-14] MEDS ORDERED: DOCUSATE SODIUM 100 MG GELCAP PO PRN (16:15)
[2017-11-14] MEDS ORDERED: ALBUTEROL HFA MDI 90 MCG/ACTUATION 8 GM INH SCH (16:15)
[2017-11-14] MEDS ORDERED: BLOOD GLUCOSE MONITORING 1 DEV DEV FS SCH (16:30)
[2017-11-14] MEDS ORDERED: amLODIPine 5 MG TAB PO SCH (16:30)
--- NOTE | 2017-11-14 16:30 | NUR ---
SPOKE WITH DR CARRION REGARDING HOME MEDS. DR CARRION WILL PLACE ORDERS. HOME MEDS TAKEN TO PHARMACY FOR VERIFICATION AND STORAGE.
[2017-11-14] MEDS ORDERED: METOPROLOL SUCCINATE 50 MG TABER PO SCH (17:00)
--- NOTE | 2017-11-14 17:20 | NUR ---
FINGERSTICK GLUCOSE OBTAINED 129, NO INSULIN NEEDED PER SLIDING SCALE.
--- NOTE | 2017-11-14 19:20 | NUR ---
REPORT ENDORSED TO PARBOILER NURSE JULIÁN. PT COMFORTABLE SLEEPING. SAFETY MEASURES IN PLACE. NO S/S OF ACUTE DISTRESS NOTED AT THIS TIME.
--- NOTE | 2017-11-14 19:21 | NUR ---
REPORT RECEIVED FROM AM NURSE AT BEDSIDE. PT IN STABLE CONDITION. AAOX4. BOARD UPDATED AND INTRODUCTIONS DONE. IV SITE L HAND 20G RUNNING NS AT 70ML/HR. SKIN WARM, DRY, AND NOT INTACT DUE TO SURGICAL WOUND. PT HAS ALCALA DRAINING PROPERLY. BILLIE DRAIN DRAINING PROPERLY. BED LOCKED IN LOW POSITION. CALL DAMON WITHIN REACH. SAFETY MEASURES IN PLACE.
[2017-11-14 20:00] VITALS: BP 145/91
--- NOTE | 2017-11-14 20:10 | NUR ---
LIPITOR GIVEN. PT TOLERATED WELL. Addendum: 11/15/17 at 0013 by Nitin Lawson RN BS 138. NO INSULIN COVERAGE NEEDED.
[2017-11-14] MEDS: ATORVASTATIN 20 MG TAB PO SCH (20:11)
[2017-11-14] MEDS ORDERED: NON-FORMULARY ITEM (Budesonide/Formoterol Fumarate* (Symbicort 160-4.5 Mcg Inhaler*) 2 PUF IH SCH (21:00)
[2017-11-14] MEDS: VENTOLIN HFA INH PRN (22:04)
--- NOTE | 2017-11-14 22:04 | NUR ---
PT REQUESTED HIS INHALER. VENTOLIN HFA ADMINISTERED. PT TOLERATED WELL.
--- NOTE | 2017-11-14 22:08 | NUR ---
PT CALLED STATING 9/10 PAIN. DILAUDID GIVEN FOR SEVERE PAIN. PT TOLERATED WELL.
[2017-11-15] VITALS: BP 164/104
[2017-11-15] MEDS: PIPER/TAZO 3.375GM/D5W PREMIX 50 ML IV SCH ×5 (00:03→23:08)
--- NOTE | 2017-11-15 00:03 | NUR ---
ARRON MARINELLI. PT TOLERATED WELL.
[2017-11-15] MEDS ORDERED: cloNIDine 0.1 MG TAB PO PRN (00:25)
--- NOTE | 2017-11-15 00:40 | NUR ---
PT BP ELEVATED AT 164/104. NOTIFIED. NEW ORDER OF CLONIDINE 0.1MG Q6H PRN TORB.
--- NOTE | 2017-11-15 01:30 | NUR ---
CLONIDINE ORDER ENTERED. PHARMACY HAS NOT APPROVED. WILL CALL PHARMACY TO ASK THEM TO VERIFY.
--- NOTE | 2017-11-15 01:47 | NUR ---
CLONIDINE GIVEN FOR ELEVATED BP. PT TOLERATED WELL.
[2017-11-15] MEDS: HYDROmorphone 1 MG/ML AMP IVP PRN ×3 (01:52→23:08)
--- NOTE | 2017-11-15 01:52 | NUR ---
DILAUDID GIVEN FOR 8/10 PAIN. PT TOLERATED WELL.
[2017-11-15 04:00] VITALS: BP 149/90
[2017-11-15] MEDS: VENTOLIN HFA INH PRN ×2 (04:13→12:31)
--- NOTE | 2017-11-15 04:13 | NUR ---
VENTOLIN HFA REQUESTED BY PT. PT TOLERATED WELL.
--- NOTE | 2017-11-15 04:20 | NUR ---
PT COMPLAINS OF A COUGH. PULMONARY GROUP CALLED. WAITING FOR MD ORDERS.
--- NOTE | 2017-11-15 04:40 | NUR ---
NEW ORDER FOR ROBITUSSIN 15ML PO Q6H PRN FOR COUGH. TORB BY DR. LINDER.
[2017-11-15] MEDS: guaiFENesin DM 200/20 MG-10 ML 10 ML UDC PO PRN ×2 (04:59→23:07)
--- NOTE | 2017-11-15 04:59 | NUR ---
ROBITUSSIN GIVEN. PT TOLERATED WELL.
--- NOTE | 2017-11-15 05:00 | NUR ---
ARRON MARINELLI. PT TOLERATED WELL. BS TAKEN. BS 166.
[2017-11-15] MEDS: BLOOD GLUCOSE MONITORING 1 DEV DEV FS SCH ×4 (05:09→20:52)
[2017-11-15] MEDS: INSULIN LISPRO SLIDING SCALE 100 UNITS/ML VIAL SUBQ PRN ×4 (05:12→20:55)
--- NOTE | 2017-11-15 05:12 | NUR ---
2 UNITS OF HUMALOG GIVEN FOR BS OF 166. PT TOLERATED WELL.
[2017-11-15] MEDS: ONDANSETRON 4 MG/2 ML VIAL IV PRN ×4 (05:31→23:07)
--- NOTE | 2017-11-15 05:31 | NUR ---
PT COMPLAINS OF 9/10 PAIN AT SURGICAL SITE. DILAUDID GIVEN. PT ALSO COMPLAINS OF NAUSEA. ZOFRAN GIVEN. PT TOLERATED WELL.
[2017-11-15] MEDS: DEXT 5% /NACL 0.9% 1,000 ML IV SCH ×2 (06:07→18:06)
[2017-11-15 06:47] LABS: HEMATOCRIT 38.9 % (36-52); HEMOGLOBIN 12.7 g/dL (12.0-18.0); MEAN CORPUSCULAR HEMOGLOBIN 26 pg (27-31); MEAN CORPUSCULAR HGB CONC 33 g/dL (33-37); PLATELET COUNT (AUTO) 242 K/uL (140-450); RED BLOOD CELL COUNT(AUTO) 4.92 MIL/uL (4.20-6.10); RED CELL DISTRIBUTION WIDTH 16.4 % (11.6-13.7); WHITE BLOOD COUNT (AUTO) 13.5 K/uL (4.8-10.8)
--- NOTE | 2017-11-15 07:05 | NUR ---
REPORT GIVEN TO AM NURSE AT BEDSIDE. PT IN STABLE CONDITION.
--- NOTE | 2017-11-15 07:05 | NUR ---
PATIENT WAS AWAKE AND ALERT. NO SOB WAS NOTED AND HE CONFIRMED FEELING NO SOB. SATURATIONS ON RA ARE 92% AND HEART RATE AT 89 WITH CLEAR/ DIMINISHED BREATH SOUNDS.
--- NOTE | 2017-11-15 07:06 | NUR ---
RECEIVED REPORT FROM SLP NURSE. PATIENT LYING DOWN IN BED. NO DISTRESS NOTED. PAIN WITHIN TOLERABLE AT THIS TIME. AAOX3, CALM, COOPERATIVE, SKIN COLOR APPROPRIATE TO ETHNICITY, WARM TO TOUCH. NO NAUSEA/VOMITING AT THIS TIME. LUNGS HAS WHEEZING ON EXPIRATION. ABDOMEN HAS WOUND S/P ABD HERNIA REPAIR, HAS RIGHT BILLIE DRAIN WITH SANGUINOUS DRAINAGE. IV SITE INTACT, PATENT, AND INFUSING IVF PER MD ORDERS. REVIEWED PLAN OF CARE WITH PATIENT. PATIENT VERBALIZED UNDERSTANDING. SAFETY MEASURES IN PLACE, CALL LIGHT WITHIN REACH. WILL CONTINUE TO MONITOR.
[2017-11-15 07:15] LABS: BASOPHILS % (MANUAL) 0 % (0-2); EOSINOPHILS % (MANUAL) 4 % (0-4); LYMPHOCYTES % (MANUAL) 8 % (20-46); MONOCYTES % (MANUAL) 9 % (5-12)
[2017-11-15 08:00] VITALS: BP 147/87
[2017-11-15] MEDS: METOPROLOL SUCCINATE 50 MG TABER PO SCH (09:00)
[2017-11-15] MEDS: ASPIRIN 81 MG TAB.CHEW PO SCH (09:00)
[2017-11-15] MEDS: amLODIPine 5 MG TAB PO SCH (09:00)
[2017-11-15] MEDS: FINASTERIDE 5 MG TAB PO SCH (09:00)
[2017-11-15] MEDS: MORPHINE SULFATE 4 MG/ML SYR IV PRN ×2 (09:43→14:25)
--- NOTE | 2017-11-15 09:45 | NUR ---
PATIENT SITTING IN BED, HAD VOMIT X2 ABOUT 400 ML YELLOW VOMIT. ZOFRAN GIVEN PER MD ORDERS. COMPLAINS OF ABD PAIN, MORPHINE GIVEN PER MD ORDERS. PATIENT REFUSED PO MEDICATIONS AT THIS TIME DUE TO VOMITING. SAFETY MEASURES IN PLACE, CALL LIGHT WITHIN REACH. WILL CONTINUE TO MONITOR.
--- NOTE | 2017-11-15 10:15 | NUR ---
DR. CARRION AT BEDSIDE, NOTIFIED OF VOMITING EPISODES. SUGGESTED NGTUBE PLACEMENT, HOWEVER, PATIENT REFUSED NGTUBE PLACEMENT. SAFETY MEASURES IN PLACE, CALL LIGHT WITHIN REACH. WILL CONTINUE TO MONITOR.
[2017-11-15 12:00] VITALS: BP 150/82
--- NOTE | 2017-11-15 12:32 | NUR ---
PATIENT LYING DOWN IN BED SLEEPING, HAD X1 VOMIT 20 ML. SCHEDULED MEDICATIONS DUE GIVEN. PAIN WITHIN TOLERABLE AT THIS TIME. SAFETY MEASURES IN PLACE, CALL LIGHT WITHIN REACH. WILL CONTINUE TO MONITOR.
[2017-11-15] MEDS ORDERED: hydrALAZINE 20 MG/ML VIAL IVP PRN (13:25)
--- NOTE | 2017-11-15 13:30 | NUR ---
KUB XRAY RESULTS BACK. PAGED DR. GRAY TO NOTIFY HIM OF RESULTS AND THAT PATIENT HAS BEEN VOMITING MULTIPLE TIMES TODAY. AWAITING FOR CALL BACK FROM DR. GRAY.
--- NOTE | 2017-11-15 13:45 | NUR ---
PATIENT REFUSED FOR RN TO CHANGE DRESSING ON ABD WOUND DESPITE EXPLAINING TO HIM THAT IT HAS NOT BEEN CHANGED IN 2 DAYS AND NEEDS TO BE CHANGED TO PREVENT INFECTION. PATIENT VERBALIZED UNDERSTANDING AND SAYS "SURGEON NEEDS TO DO FIRST DRESSING CHANGE. I DON'T WANT TO CHANGE IT RIGHT NOW." WILL TRY AND ASK PATIENT AGAIN LATER.
[2017-11-15 16:00] VITALS: BP 152/89
--- NOTE | 2017-11-15 16:05 | NUR ---
ASKED IF PATIENT WILL ALLOW RN TO CHANGE DRESSING ON ABD. CONTINUES TO REFUSE AND SAYS "SURGEON NEEDS TO DO FIRST DRESSING CHANGE." WILL CONTINUE TO MONITOR.
[2017-11-15] MEDS: ALBUTEROL SULFATE/IPRATROPIU 3 ML SOL IH PRN ×2 (16:43→19:31)
--- NOTE | 2017-11-15 16:43 | NUR ---
PATIENT WAS IN DISTRESS WHEN I ARRIVED AND VOMITING. PATIENT HAD AN O2 SATURATION OF 85% ON RA. AFTER TREATMENT, I PLACED PATIENT ON 3L NASAL CANNULA AND HIS SATURATIONS [place] TO 93%
--- NOTE | 2017-11-15 17:03 | NUR ---
PAGED DR. GRAY AGAIN TO NOTIFY OF KUB RESULTS AND PATIENT VOMITING. AWAITING FOR CALL BACK. WILL CONTINUE TO MONITOR.
--- NOTE | 2017-11-15 17:38 | NUR ---
TALKED TO DR. CARRION VIA PHONE AND REPORTED KUB RESULTS AND THAT DR. GRAY WAS NOT RETURNING CALLS AFTER MULTIPLE PAGE ATTEMPTS. PER DR. CARRION ENCOURAGE PATIENT TO WALK AROUND, AND ASK ABOUT NGTUBE PLACEMENT AGAIN FOR GASTRIC SUCTIONING. ASKED PATIENT ABOUT NGTUBE PLACEMENT, CONTINUES TO REFUSE AT THIS TIME. WILL CONTINUE TO MONITOR.
--- NOTE | 2017-11-15 19:34 | NUR ---
GAVE REPORT TO CREATIVE COORDINATOR NURSE FOR CONTINUITY OF CARE. PATIENT IN STABLE CONDITION.
--- NOTE | 2017-11-15 19:35 | NUR ---
REPORT RECEIVED FROM AM NURSE AT BEDSIDE. PT IN STABLE CONDITION. AAOX4. BOARD UPDATED. PT SLEEPING WITH WET TOWEL ON FOREHEAD. PT HAS COMPLAINTS OF PAIN BUT DOES NOT WANT ANY NARCOTICS HE FEELS IT IS CAUSING HIM ILEUS. NEW ORDER FOR KETOROLAC WAITING TO BE VERIFIED BY PHARMACY. IV SITE L HAND 20G RUNNING D5NS AT 70ML/HR. SKIN WARM, DRY, AND NOT INTACT DUE TO SURGICAL WOUND AT THE ABDOMEN. PT HAS ALCALA. PT HAS BILLIE DRAIN. BOTH DRAINING PROPERLY. BED LOCKED IN LOW POSITION. CALL DAMON WITHIN REACH.
[2017-11-15 20:00] VITALS: BP 149/92
[2017-11-15] MEDS: KETOROLAC 30 MG/ML VIAL IVP PRN (20:03)
--- NOTE | 2017-11-15 20:03 | NUR ---
PT COMPLAINS OF 9/10 PAIN. FACIAL GRIMACE, GUARDING, AND MOANING NOTED. TORADOL GIVEN FOR PAIN. PT TOLERATED WELL.
[2017-11-15] MEDS: ATORVASTATIN 20 MG TAB PO SCH (20:06)
--- NOTE | 2017-11-15 20:55 | NUR ---
BS TAKEN. BS 176. 2 UNITS OF HUMALOG GIVEN. PT TOLERATED WELL.
--- NOTE | 2017-11-15 23:08 | NUR ---
ARRON MARINELLI. ZOFRAN GIVEN IVP. DILAUDID GIVEN FOR 8/10 PAIN. PT TOLERATED WELL. EDUCATED PT ON DILAUDID FOR PAIN RELIEF. SIDE EFFECTS OF COUGH AND FURTHER EXACERBATING HIS ILEUS. PT STATED HE DOES NOT CARE ABOUT THAT AND WANTS PAIN RELIEF.
[2017-11-16] VITALS: BP 144/84
--- NOTE | 2017-11-16 02:45 | NUR ---
PT REQUESTED FOR A BREATHING TX. BREATHING TX DONE.
[2017-11-16] MEDS: KETOROLAC 30 MG/ML VIAL IVP PRN ×4 (02:52→20:35)
--- NOTE | 2017-11-16 02:52 | NUR ---
TORADOL GIVEN FOR 8/10 PAIN. PT TOLERATED WELL.
[2017-11-16 04:00] VITALS: BP 128/89
--- NOTE | 2017-11-16 04:20 | NUR ---
PT IN BED AWAKE ATTEMPTING TO SLEEP. NO S/S OF DISTRESS. NO COMPLAINTS OF PAIN. WILL CONTINUE TO MONITOR.
[2017-11-16] MEDS: PIPER/TAZO 3.375GM/D5W PREMIX 50 ML IV SCH ×3 (05:03→18:00)
--- NOTE | 2017-11-16 05:03 | NUR ---
ARRON MARINELLI. BS 158. 2 UNITS OF HUMALOG GIVEN. PT TOLERATED WELL.
[2017-11-16] MEDS: BLOOD GLUCOSE MONITORING 1 DEV DEV FS SCH ×4 (05:06→20:35)
[2017-11-16] MEDS: INSULIN LISPRO SLIDING SCALE 100 UNITS/ML VIAL SUBQ PRN (05:15)
--- NOTE | 2017-11-16 05:25 | NUR ---
BILLIE DRAINED 10ML OF SEROSANGUINOUS FLUID. NEGATIVE PRESSURE BACK INTO BILLIE FOR COLLECTION.
--- NOTE | 2017-11-16 07:15 | NUR ---
REPORT GIVEN TO AM NURSE AT BEDSIDE. PT IN STABLE CONDITION.
--- NOTE | 2017-11-16 07:16 | NUR ---
RECEIVED REPORT FROM THE MEDICAL RECORD RETRIEVAL SPECIALIST NURSE AT BEDSIDE FOR CONTINUITY OF CARE. PT IS AWAKE AND ORIENTED. INTRODUCED MYSELF AND UPDATED THE BOARD. PT IS S/P ABD HERNIA REPAIR W/ MESH ON 11/13. ORIGINAL DRESSING STILL INTACT. NO DRESSING CHANGE HAS BEEN DONE. PER MEDICAL RECORD RETRIEVAL SPECIALIST NURSE, CALLED DR GRAY MANY TIMES, DID NOT RETURN CALL. PT HAS NOT AMBULATED SINCE SURGERY. ALCALA CATH IN PLACE. LBM 11/13/17. IV ON L HAND 20G D5NS AT 70ML INFUSING.WILL CONTINUE TO MONITOR PT AND MANAGE PAIN.
[2017-11-16 07:28] LABS: BASOPHILS % (AUTO) 0.3 % (0.0-2.0); EOSINOPHILS # (AUTO) 0.2 K/uL (0-0.4); EOSINOPHILS % (AUTO) 1.6 % (0.0-4.0); HEMATOCRIT 36.8 % (36-52); HEMOGLOBIN 11.9 g/dL (12.0-18.0); LYMPHOCYTES # (AUTO) 1.1 K/uL (2.0-11.5); LYMPHOCYTES % (AUTO) 7.7 % (20.5-51.1); MEAN CORPUSCULAR HEMOGLOBIN 26 pg (27-31); MEAN CORPUSCULAR HGB CONC 32 g/dL (33-37); MEAN CORPUSCULAR VOLUME 79.6 fL (80-94); MONOCYTES # (AUTO) 1.3 K/uL (0.8-1.0); NEUTROPHILS # (AUTO) 11.8 K/uL (1.8-7.7); NEUTROPHILS % (AUTO) 81.4 % (42.2-75.2); PLATELET COUNT (AUTO) 237 K/uL (140-450); RED BLOOD CELL COUNT(AUTO) 4.63 MIL/uL (4.20-6.10); RED CELL DISTRIBUTION WIDTH 16.2 % (11.6-13.7); WHITE BLOOD COUNT (AUTO) 14.4 K/uL (4.8-10.8)
--- NOTE | 2017-11-16 07:40 | NUR ---
RCV'D PT IN 3 L NC WITH SPO2 OF 99%. DECREASED PT TO 1 L NC. NO SOB OR DISTRESS NOTED. PT ASLEEP COMFORTABLY. WILL CONTINUE TO MONITOR.
[2017-11-16 08:00] VITALS: BP 143/73
[2017-11-16 08:05] LABS: ALBUMIN 2.3 g/dL (3.4-5.0); ANION GAP 7.1 (8-16); CARBON DIOXIDE 31.8 mmol/L (21-32); CREATININE 1.2 mg/dL (0.7-1.3); TOTAL BILIRUBIN 0.8 mg/dL (0.0-1.0)
[2017-11-16 08:07] LABS: POTASSIUM 2.9 mmol/L (3.5-5.1)
--- NOTE | 2017-11-16 08:07 | NUR ---
CRITICAL LAB : K 2.9
--- NOTE | 2017-11-16 08:20 | NUR ---
PAGED DR CARRION RE CRITICAL REPORT. WILL PUT IN ORDERS PER MD.
--- NOTE | 2017-11-16 08:47 | NUR ---
PATIENT HAS BEEN SCREENED AND CATEGORIZED MODERATE NUTRITION RISK. PATIENT WILL BE SEEN WITHIN 3-5 DAYS OF ADMISSION. 11/16/17 11/18/[address]
[2017-11-16] MEDS: ASPIRIN 81 MG TAB.CHEW PO SCH (09:30)
[2017-11-16] MEDS: METOPROLOL SUCCINATE 50 MG TABER PO SCH (09:30)
[2017-11-16] MEDS: FINASTERIDE 5 MG TAB PO SCH (09:30)
[2017-11-16] MEDS: POTASSIUM CHL 40 MEQ/ D5-1/2NS 1,000 ML IV SCH (09:31)
[2017-11-16] MEDS: amLODIPine 5 MG TAB PO SCH (09:31)
--- NOTE | 2017-11-16 11:13 | NUR ---
PT SLEEPING. NO SIGNS OF DISTRESS. DR CARRION HERE TO ASSESS PT. WILL CONTINUE TO MONITOR PT.
[2017-11-16 12:00] VITALS: BP 147/88
--- NOTE | 2017-11-16 12:34 | NUR ---
CM NOTE ADMISSION CHART REVIEW DONE. INITIAL REVIEW AND ORDER FOR SNF REFERRAL FOR PT OT FAXED TO [facility] [phone] CAS PH# [phone]. AWAITING PHYSICAL THERAPY EVALUATION. PER [facility] CM CAS, IF PATIENT WILL QUALIFY TO GO TO SNF, TO SEND INQUIRY TO [facility], [facility] OR [facility]. MAYCO DUBOSE.
--- NOTE | 2017-11-16 13:30 | NUR ---
DR GRAY HERE TO SEE PT. ORDERED BILLIE DRAIN REMOVAL. REMOVED. PT TOLERATED WELL. NO DRAINAGE NOTED. DRESSING IN PLACE. DR GRAY REMOVED THE DRESSING. NOTED YASMEEN, NO SIGNS OF INFECTION. CLEAN AND DRY. WILL CLEAN AND APPLY DRESSING ORDERED. TOLERATING FULL LIQ WELL. WILL INCREASE TO SOFT DIET FOR DINNER. WILL CONTINUE TO MONITOR PT.
[2017-11-16 14:16] LABS: APPEARANCE,URINE CLEAR (CLEAR); BILIRUBIN,URINE NEGATIVE (NEGATIVE); BLOOD, URINE NEGATIVE (NEGATIVE); COLOR,URINE YELLOW (YELLOW); LEUKOCYTE ESTERASE ,URINE NEGATIVE (NEGATIVE); NITRITE, URINE NEGATIVE (NEGATIVE); UGLUCOSE NEGATIVE (NEGATIVE)
--- NOTE | 2017-11-16 14:53 | NUR ---
P/T HERE TO EVALUATE.
--- NOTE | 2017-11-16 15:15 | NUR ---
CM NOTE PER [facility] MARIO CARDOZO, IF PATIENT GOING TO SNF, FOR [facility] AUTH# [id number]. CHARGE NURSE BARTOLO DUBOSE.
[2017-11-16 16:00] VITALS: BP 140/86
--- NOTE | 2017-11-16 16:30 | NUR ---
Finance Assistant Note: I faxed inquiries to [facility] , [facility] , and [facility] .
--- NOTE | 2017-11-16 18:05 | NUR ---
ADMINISTERED ZOSYN SCHEDULED. PT SLEEPING. NO SIGNS OF DISTRESS. WILL CONTINUE TO MONITOR PT.
--- NOTE | 2017-11-16 19:20 | NUR ---
ENDORSED PT TO THE LIGHTER NURSE AT BEDSIDE FOR CONTINUITY OF CARE. PT IS IN STABLE CONDITION.
--- NOTE | 2017-11-16 19:21 | NUR ---
RECEIVED REPORT FROM DAY SHIFT NURSE CHRIST-RN AT BEDSIDE FOR CONTINUITY OF CARE. PT AOX4, ON 3L/NC, ON TELE MONITORING. PT IS S/P ABD HERNIA REPAIR W/ MESH ON 11/13. ALCALA CATH IN PLACE. LBM 11/13/17. IV ON L HAND 20G. DISCUSSED PLAN OF CARE AND PT VERBALIZED UNDERSTANDING. NO S/S OF RESPIRATORY DISTRESS OR DISCOMFORT NOTED AT THIS TIME. BED IN LOWEST POSITION, BED BREAKS ON, BOTH SIDE RAILS UP. BED SIDE TABLE AND CALL LIGHT ARE WITHIN REACH. WILL CONTINUE TO MONITOR.
[2017-11-16 20:00] VITALS: BP 148/80
--- NOTE | 2017-11-16 20:00 | NUR ---
BLOOD GLUCOSE 123-NO INSULIN COVERAGE NEEDED. VITAL SIGNS TAKEN AND TOLERATED WELL. NO S/S OF RESPIRATORY DISTRESS OR DISCOMFORT NOTED AT THIS TIME. WILL CONTINUE TO MONITOR.
--- NOTE | 2017-11-16 20:10 | NUR ---
PATIENT REQUESTED PRN TREATMENT. STATES THAT HE FEELS SOB. PATIENT WAS ON ROOM AIR WHEN ENTERED ROOM SPO2 90 AND HEART RATE 84. B/S: CLEAR BILATERALLY PRE AND POST TX. PATIENT CONFIRMED IMPROVED AERATION POST TX.
[2017-11-16] MEDS: ATORVASTATIN 20 MG TAB PO SCH (20:35)
--- NOTE | 2017-11-16 20:35 | NUR ---
SCHEDULED MEDICATION GIVEN. PT REQUESTING PAIN MEDICATION TORADOL FOR PAIN 10/09-MEDICATED AND TOLERATED WELL. NO S/S OF RESPIRATORY DISTRESS. WILL CONTINUE TO MONITOR.
--- NOTE | 2017-11-16 22:00 | NUR ---
SCHEDULED MEDICATION K-RIDER NOT GIVEN BECAUSE OTHER K-RIDER STILL INFUSING. WILL ADMINISTER SOON PREVIOUS K-RIDER IS COMPLETED. PT SLEEPING IN BED. NO S/S OF RESPIRATORY DISTRESS OR DISCOMFORT NOTED AT THIS TIME. WILL CONTINUE TO MONITOR.
[2017-11-17] VITALS: BP 136/74
[2017-11-17] MEDS: HYDROmorphone 1 MG/ML AMP IVP PRN ×2 (00:04→06:07)
[2017-11-17] MEDS: PIPER/TAZO 3.375GM/D5W PREMIX 50 ML IV SCH ×4 (00:04→17:24)
[2017-11-17] MEDS: POTASSIUM CHL 40 MEQ/ D5-1/2NS 1,000 ML IV SCH ×2 (00:05→17:24)
--- NOTE | 2017-11-17 00:05 | NUR ---
VITAL SIGNS TAKEN AND TOLERATED WELL. SCHEDULED MEDICATIONS GIVEN AND TOLERATED WELL. PT CONTINUES TO COMPLAIN OF PAIN 10/09-MEDICATED WITH DILAUDID AND PT TOLERATED WELL. NO S/S OF RESPIRATORY DISTRESS. WILL CONTINUE TO MONITOR.
--- NOTE | 2017-11-17 02:00 | NUR ---
PT CONTINUES TO SLEEP IN BED. NO S/S OF RESPIRATORY DISTRESS OR DISCOMFORT NOTED AT THIS TIME. WILL CONTINUE TO MONITOR.
[2017-11-17 04:00] VITALS: BP 134/88
--- NOTE | 2017-11-17 04:00 | NUR ---
VITAL SIGNS TAKEN AND TOLERATED WELL. NO S/S OF RESPIRATORY DISTRESS OR DISCOMFORT NOTED AT THIS TIME. WILL CONTINUE TO MONITOR.
--- NOTE | 2017-11-17 05:27 | NUR ---
SCHEDULED MEDICATION ZOSYN GIVEN AND TOLERATED WELL. NO S/S OF RESPIRATORY DISTRESS OR DISCOMFORT NOTED AT THIS TIME. WILL CONTINUE TO MONITOR.
[2017-11-17] MEDS: BLOOD GLUCOSE MONITORING 1 DEV DEV FS SCH ×4 (05:30→21:31)
--- NOTE | 2017-11-17 05:30 | NUR ---
BLOOD GLUCOSE 136-NO INSULIN COVERAGE NEEDED
--- NOTE | 2017-11-17 06:07 | NUR ---
PT C/O PAIN 10/09- MEDICATED WITH TORADOL FOR SEVERE PAIN. PT TOLERATED WELL. NO S/S OF RESPIRATORY DISTRESS OR DISCOMFORT NOTED AT THIS TIME. WILL CONTINUE TO MONITOR.
--- NOTE | 2017-11-17 07:00 | NUR ---
PT SLEEPING IN BED. NO S/S OF RESPIRATORY DISTRESS OR DISCOMFORT NOTED AT THIS TIME. WILL CONTINUE TO MONITOR.
[2017-11-17 07:12] LABS: BASOPHILS # (AUTO) 0.1 K/uL (0.00-0.22); BASOPHILS % (AUTO) 0.6 % (0.0-2.0); EOSINOPHILS % (AUTO) 8.7 % (0.0-4.0); HEMATOCRIT 32.4 % (36-52); HEMOGLOBIN 10.6 g/dL (12.0-18.0); LYMPHOCYTES # (AUTO) 1.1 K/uL (2.0-11.5); LYMPHOCYTES % (AUTO) 9.3 % (20.5-51.1); MEAN CORPUSCULAR HEMOGLOBIN 26 pg (27-31); MEAN CORPUSCULAR HGB CONC 33 g/dL (33-37); MEAN CORPUSCULAR VOLUME 78.9 fL (80-94); MONOCYTES # (AUTO) 1.1 K/uL (0.8-1.0); MONOCYTES % (AUTO) 9.2 % (1.7-9.3); NEUTROPHILS # (AUTO) 8.5 K/uL (1.8-7.7); NEUTROPHILS % (AUTO) 72.2 % (42.2-75.2); PLATELET COUNT (AUTO) 232 K/uL (140-450); RED CELL DISTRIBUTION WIDTH 16.1 % (11.6-13.7); WHITE BLOOD COUNT (AUTO) 11.8 K/uL (4.8-10.8)
--- NOTE | 2017-11-17 07:20 | NUR ---
ENDORSED PT CARE TO DAY SHIFT NURSE YANIRA FOR CONTINUITY OF CARE.
--- NOTE | 2017-11-17 07:21 | NUR ---
RECEIVED PT FROM THE MORNING SHOW PRODUCER NURSE AT BEDSIDE FOR CONTINUITY OF CARE. PT IS AWAKE AND ORIENTED. INTRODUCED MYSELF AND UPDATED THE BOARD. SKIN: ABD INCISION AND HOLE FROM S/P ABD HERNIA REPAIR AND S/P BILLIE DRAIN. DRESSING INTACT. IV ON L HAND 20G KCL 40MEQ D5 1/2 NS AT 75ML. V/S WITHIN NORMAL RANGE. DENIES PAIN AT THIS TIME. PLAN FOR TODAY: SNF PLACEMENT, PAIN MANAGEMENT. WILL CONTINUE TO MONITOR PT.
[2017-11-17 08:00] VITALS: BP 145/83
[2017-11-17 08:15] LABS: ALBUMIN 2.1 g/dL (3.4-5.0); ANION GAP 11.8 (8-16); CARBON DIOXIDE 27.6 mmol/L (21-32); POTASSIUM 3.4 mmol/L (3.5-5.1); TOTAL BILIRUBIN 0.6 mg/dL (0.0-1.0)
[2017-11-17] MEDS: METOPROLOL SUCCINATE 50 MG TABER PO SCH (09:22)
[2017-11-17] MEDS: ASPIRIN 81 MG TAB.CHEW PO SCH (09:22)
[2017-11-17] MEDS: FINASTERIDE 5 MG TAB PO SCH (09:22)
[2017-11-17] MEDS: amLODIPine 5 MG TAB PO SCH (09:22)
--- NOTE | 2017-11-17 09:23 | NUR ---
ADMINISTERED MORNING MEDS. PT TOLERATED WELL. NO COMPLAINTS. WILL CONTINUE TO MONITOR PT.
[2017-11-17] MEDS ORDERED: METR250T2 PO (10:07)
[2017-11-17] MEDS ORDERED: CIPR500T4 PO (10:07)
--- NOTE | 2017-11-17 11:14 | NUR ---
Manager Public Note: I met with patient at bedside to discuss tentative discharge plan. He stated MD already spoke with him regarding short term long term facility placement for PT and OT. I informed him the corrections caseworker from [facility] (Tejal [phone]) stated [facility] is contracted with [facility] , [facility] , and [facility] . Per patient, his first snf choice is [facility], his second is [facility], and third is [facility]. Per Lurdes from [facility], they need final culture results, unable to tell me if they can accept patient without final culture results, corrections caseworker Brianda made aware. Per Moisés from [facility], they need final culture results, unable to tell me if they can accept patient without final culture results, corrections caseworker Brianda made aware.
--- NOTE | 2017-11-17 11:16 | NUR ---
CM NOTE PER KAM EXT [id number], [facility] NIGHT CLERK, NO URINE CULTURE RESULT AT THIS TIME AND WILL COME OUT ABOUT 24 HRS FROM THE DATE IT WAS SUBMITTED (SUBMITTED 11/16/17). KAM ALSO STATED THAT FINAL BLOOD CULTURE RESULTS TAKEN ON 11/16/17 WILL BE OUT IN 48-72 HRS AFTER IT WAS SUBMITTED. MAYCO KONG, CHARGE NURSE BARTOLO, [facility] CARDOZO AWARE. [facility] CARDOZO CAME TO [facility] AND I GAVE HER A VERBAL CLINICAL UPDATE ON PATIENT.
[2017-11-17 12:00] VITALS: BP 147/84
[2017-11-17] MEDS: KETOROLAC 30 MG/ML VIAL IVP PRN ×2 (13:01→21:27)
--- NOTE | 2017-11-17 15:14 | NUR ---
GOT CALL FROM NURSE THAT PT IS ASKING FOR BREATHING TX. PT ASSESSMENT DONE. PT HAS CLEAR BREATH SOUNDS. RR 18. HR 86. GOOD CHEST RISE. SPO2 IS 96% ON ROOM AIR. NO INDICATION FOR HHN TX. WILL CONTINUE TO MONITOR.
[2017-11-17 16:00] VITALS: BP 143/87
--- NOTE | 2017-11-17 19:33 | NUR ---
ENDORSED PT TO THE FOOD SERVICE NURSE AT BEDSIDE FOR CONTINUITY OF CARE. PT IS IN STABLE CONDITION.
--- NOTE | 2017-11-17 19:40 | NUR ---
SEEN PT AWAKE, ALERT AND ORIENTED. INITIAL ASSESSMENT DONE. ABDOMINAL DRESSING-CLEAN.DRY&INTACT. VITAL SIGNS CHECKED. PT'S O2SAT 86%-87% ON RA. PT DENIES ANY SOB. ENCOURAGED PT TO TAKE DEEP BREATHS BUT O2SAT DIDN'T GO UP YET. PT PLACED ON 2L VIA NC W/ O2SAT 90%. PT DENIES ANY DISCOMFORT. SAFETY REINFORCED. WILL CONTINUE TO MONITOR.
[2017-11-17 20:00] VITALS: BP 108/55
--- NOTE | 2017-11-17 21:25 | NUR ---
PT CALLED ASKING SOMETHING FOR PAIN. MEDICATIONS GIVEN ORDERED W/ TEACHINGS. PT VERBALIZED UNDERSTANDING. BLOOD SUGAR CHECKED:116. NO COVERAGE NEED. PT ASKING FOR APPLE JUICE AND SANDWICH.
[2017-11-17] MEDS: ATORVASTATIN 20 MG TAB PO SCH (21:26)
--- NOTE | 2017-11-17 21:40 | NUR ---
PT'S O2SAT 98% ON 2L VIA NASAL CANNULA. O2 REMOVE FOR NOW. PT DENIES ANY SOB.
--- NOTE | 2017-11-17 22:20 | NUR ---
PT CALLED AND WANTS TO GO TO THE BATHROOM. ASSISTED PT TO THE BATHROOM. INSTRUCTED PT TO PULL THE CORD WHEN DONE. PT VERBALIZED UNDERSTANDING.
--- NOTE | 2017-11-18 | NUR ---
SEEN PT AWAKE. VITAL SIGNS CHECKED. PT STATES, "SO THE NEXT PAIN MEDICATION IS NOT UNTIL 3AM RIGHT?" ANSWERED PT "YES". PT DENIES ANY NEEDS AT THIS TIME.
[2017-11-18 00:15] VITALS: BP 123/62
[2017-11-18] MEDS: PIPER/TAZO 3.375GM/D5W PREMIX 50 ML IV SCH ×3 (00:23→11:48)
[2017-11-18] MEDS: guaiFENesin DM 200/20 MG-10 ML 10 ML UDC PO PRN ×2 (00:59→08:57)
--- NOTE | 2017-11-18 00:59 | NUR ---
PT CALLED AND ASKED FOR COUGH MEDICINE. PT MEDICATED FOR COUGH ORDERED. PT KEPT COMFORTABLE.
[2017-11-18 03:20] VITALS: BP 133/58
[2017-11-18] MEDS: KETOROLAC 30 MG/ML VIAL IVP PRN ×2 (03:20→10:09)
--- NOTE | 2017-11-18 03:20 | NUR ---
PT CALLED ASKING SOMETHING FOR PAIN. SEEN PT AWAKE. VITAL SIGNS CHECKED. PT MEDICATED W/ TORADOL ORDERED. TEACHINGS PROVIDED. PT VERBALIZED UNDERSTANDING.
[2017-11-18] MEDS: POTASSIUM CHL 40 MEQ/ D5-1/2NS 1,000 ML IV SCH ×2 (05:58→14:00)
--- NOTE | 2017-11-18 05:58 | NUR ---
SEEN PT ASLEEP BUT EASILY AROUSABLE. IV ZOSYN GIVEN ORDERED W/ TEACHINGS. PT DENIES ANY NEEDS. BLOOD SUGAR CHECKED:116 NO COVERAGE NEEDED. CALL LIGHT W/IN REACH.
[2017-11-18 06:32] LABS: BASOPHILS # (AUTO) 0.1 K/uL (0.00-0.22); BASOPHILS % (AUTO) 0.7 % (0.0-2.0); HEMATOCRIT 31.9 % (36-52); HEMOGLOBIN 10.6 g/dL (12.0-18.0); LYMPHOCYTES # (AUTO) 1.2 K/uL (2.0-11.5); LYMPHOCYTES % (AUTO) 13.3 % (20.5-51.1); MEAN CORPUSCULAR HEMOGLOBIN 26 pg (27-31); MEAN CORPUSCULAR HGB CONC 33 g/dL (33-37); MEAN CORPUSCULAR VOLUME 78.5 fL (80-94); MONOCYTES # (AUTO) 0.9 K/uL (0.8-1.0); MONOCYTES % (AUTO) 10.2 % (1.7-9.3); NEUTROPHILS # (AUTO) 5.8 K/uL (1.8-7.7); NEUTROPHILS % (AUTO) 64.8 % (42.2-75.2); PLATELET COUNT (AUTO) 227 K/uL (140-450); RED BLOOD CELL COUNT(AUTO) 4.07 MIL/uL (4.20-6.10); RED CELL DISTRIBUTION WIDTH 15.8 % (11.6-13.7); WHITE BLOOD COUNT (AUTO) 8.9 K/uL (4.8-10.8)
[2017-11-18 06:45] LABS: ALBUMIN 2.3 g/dL (3.4-5.0); ANION GAP 9.3 (8-16); CARBON DIOXIDE 29.3 mmol/L (21-32); POTASSIUM 3.6 mmol/L (3.5-5.1); TOTAL BILIRUBIN 0.6 mg/dL (0.0-1.0)
[2017-11-18] MEDS: BLOOD GLUCOSE MONITORING 1 DEV DEV FS SCH ×2 (07:00→11:49)
--- NOTE | 2017-11-18 07:10 | NUR ---
RECEIVED PATIENT REPORT AT BEDSIDE. PATIENT IS ASLEEP BUT AROUSABLE. PATIENT IS ON 2L O2, NO S/S OF DISTRESS. [place] CATHETER IN PLACE, DRAINING CLEAR YELLOW URINE. PATIENT ON TELE MONITORING. FALL PRECAUTIONS IN PLACE. WILL CONTINUE TO MONITOR
[2017-11-18 08:00] VITALS: BP 132/62
[2017-11-18] MEDS: amLODIPine 5 MG TAB PO SCH (08:41)
[2017-11-18] MEDS: ASPIRIN 81 MG TAB.CHEW PO SCH (08:42)
[2017-11-18] MEDS: METOPROLOL SUCCINATE 50 MG TABER PO SCH (08:42)
[2017-11-18] MEDS: FINASTERIDE 5 MG TAB PO SCH (08:42)
--- NOTE | 2017-11-18 10:00 | NUR ---
PER DR CARRION, PATIENT WILL BE DISCHARGED WITH THE [place] CATHETER IN PLACE
--- NOTE | 2017-11-18 10:24 | NUR ---
Remote Operations Producer Note: Per Shape Hand Brianda, patient is not on isolation and will need O2 liters; I relayed this information to Lurdes from [facility] . Per Lurdes from [facility], patient may go to room 111 bed 1 at their facility after 2pm today, accepting physician is , [employer] Brianda made aware. Lurdes stated she was going to contact Shape Hand Tejal from [facility] for snf authorization.
--- NOTE | 2017-11-18 10:41 | NUR ---
CM NOTE PER MAYCO KONG, PATIENT CAN GO TODAY TO [facility] RM [address]. PER CHARGE NURSE FITO, PATIENT CONTINUES TO NEED CONTINUOUS 2L O2 NC. PER ROESLYN OF [facility] PH# [phone], PATIENT WILL BE PICKED UP AT 1400 TODAY GOING TO [facility]. CHARGE NURSE PAYTON AND [facility] MARIO CARDOZO AWARE. Addendum: 11/18/17 at 1050 by Brianda Menjivar CM SPOKE WITH [facility] MARIO CARDOZO PH# [phone] AND GAVE HER A VERBAL CLINICAL UPDATE ON THE PATIENT AND INFORMED HER THAT PATIENT IS GETTING DISCHARGED TO [facility] TODAY. PROGRESS NOTES FAXED TO [facility] [phone].
[2017-11-18] MEDS: ALBUTEROL SULFATE/IPRATROPIU 3 ML SOL IH PRN (11:31)
[2017-11-18 12:00] VITALS: BP 135/81
[2017-11-18] MEDS: INSULIN LISPRO SLIDING SCALE 100 UNITS/ML VIAL SUBQ PRN (12:05)
--- NOTE | 2017-11-18 12:51 | NUR ---
SPOKE TO SERAFIN FROM [facility] AND GAVE PATIENT REPORT
--- NOTE | 2017-11-18 15:21 | NUR ---
PATIENT PICKED UP BY [facility]. DISCHARGE INSTRUCTIONS GIVEN. PATIENT VERBALIZED UNDERSTANDING. IV LINE DISCONTINUED. TELE MONITOR TAKEN OFF. PATIENT LEFT WITH ALL HIS BELONGINGS AND DISCHARGE PAPERS. PATIENT LEFT IN STABLE CONDITION
== END 2017-11-18 15:25 | DRG 710 ==
LOC: MED 14:32 → MTU 18:09
PROVIDERS: ADMIT Hospitalist; ATTEND Hospitalist
PROC: 0WUF0JZ Supplement Abdominal Wall with Synthetic Substitute, Open Approach (ICD-10-PCS; principal; 2017-11-13 20:10)
DX: A41.50 Gram-negative sepsis, unspecified (principal); N17.9 Acute kidney failure, unspecified; E87.2 Acidosis; E11.51 Type 2 diabetes mellitus with diabetic peripheral angiopathy without gangrene; K43.6 Other and unspecified ventral hernia with obstruction, without gangrene; K56.7 Ileus, unspecified; J44.9 Chronic obstructive pulmonary disease, unspecified; I10 Essential (primary) hypertension; E87.6 Hypokalemia; M19.90 Unspecified osteoarthritis, unspecified site; N40.1 Benign prostatic hyperplasia with lower urinary tract symptoms; Z88.8 Allergy status to other drugs, medicaments and biological substances
CPT/HCPCS: 36415; 71045; 74018; 80048; 80053; 81003; 82948; 83605; 83690; 84484; 85025; 85610; 85730; 86886; 86900; 86901; 87040; 87081; 87086; 93005; 94640; 96361; 96365; 97110; 97116; 97530; 99285; C1781; J0330; J0690; J1170; J1815; J1885; J2175; J2250; J2270; J2405; J2543; J2704; J3010; J3480; J3490; J7030; J7042; J7060; J7620

== ENCOUNTER 2018-10-26 18:59 | Emergency (ER) | payer OTHER ==
[~2018-10-26] VITALS: Ht 182.9 cm; Wt 89.5 kg
[~2018-10-26 18:59] MED LIST changes: +CIPR500T4 PO; -METF850T PO; +METR250T2 PO
[2018-10-26 19:08] VITALS: BP 134/94
--- NOTE | 2018-10-26 19:25 | NUR ---
63 Y/M PRESENTED TO ED REQUESTING ALCALA CATHETER CHANGE. LAST CHANGED 09/02/18 AT [facility]. NO SOB. NO FEVER. NO PAIN. CLOUDY YELLOW URINE IN ALCALA CATH BAG. HX ENLARGED PROSTATE, COPD, ASTHMA, HTN, VENOUS STASIS, DM, 2 HERNIAS. RX ATORVASTIN, PREDNISONE, FUROSEMIDE, GLIPIZIDE, FINASTERIDE, ASPIRIN, CARVEDILOL, TAMSULOSIN, ALBUTEROL. WILL CONTINUE TO MONITOR.
[2018-10-26 22:11] VITALS: BP 134/94
--- NOTE | 2018-10-26 22:11 | NUR ---
Patient discharged with v/s stable. Written and verbal after care instructions given and explained. Patient alert, oriented and verbalized understanding of instructions. Ambulatory with steady gait. All questions addressed prior to discharge. ID band removed. Patient advised to follow up with PMD. Rx of DOXYCYCLINE given. Patient educated on indication of medication including possible reaction and side effects. Opportunity to ask questions provided and answered.
== END 2018-10-26 22:11 | disposition home or self-care (01) ==
LOC: MED 18:59
DX: T83.098A Other mechanical complication of other urinary catheter, initial encounter (principal); Y84.6 Urinary catheterization as the cause of abnormal reaction of the patient, or of later complication, without mention of misadventure at the time of the procedure; Y92.89 Other specified places as the place of occurrence of the external cause
CPT/HCPCS: 51702; 82948; 99284

== ENCOUNTER 2019-02-08 14:18 | Emergency (ER) | payer OTHER ==
[~2019-02-08] VITALS: Ht 185.4 cm; Wt 86.2 kg
[~2019-02-08 14:18] MED LIST changes: -ACET-9525 PO; -ALBU0.094 IH; +ALBU6.7H IH; -AMLO5TAB PO; -BUDE1AER IH; -CIPR500T4 PO; -DOCU-299 PO; -METO50TE2 PO; -METR250T2 PO
[2019-02-08 14:25] VITALS: BP 144/74
--- NOTE | 2019-02-08 14:25 | NUR ---
PT AMBULATED TO BED 8.
--- NOTE | 2019-02-08 14:36 | NUR ---
PT REQUESTING TO HAVE ALCALA'S CATHETER CHANGED, STATES IT HAS BEEN IN FOR 32 DAYS. PATIENT STATES PAIN OF 0/10 AT THIS TIME. PATIENT POSITIONED FOR COMFORT; HOB ELEVATED; BEDRAILS UP X1; BED DOWN. ER MD MADE AWARE OF PT STATUS.
--- NOTE | 2019-02-08 16:13 | NUR ---
PA Li evaluating patient at bedside.
[2019-02-08 16:19] VITALS: BP 141/90
--- NOTE | 2019-02-08 16:19 | NUR ---
Patient discharged with v/s stable. Written and verbal after care instructions given and explained. Patient alert, oriented and verbalized understanding of instructions. Ambulatory with steady gait. All questions addressed prior to discharge. ID band removed. Patient advised to follow up with PMD. Rx of NITROFURANTOIN given. Patient educated on indication of medication including possible reaction and side effects. Opportunity to ask questions provided and answered.
== END 2019-02-08 16:19 | disposition home or self-care (01) ==
LOC: MED 14:18
DX: N39.0 Urinary tract infection, site not specified (principal); I50.9 Heart failure, unspecified; J44.9 Chronic obstructive pulmonary disease, unspecified; E11.9 Type 2 diabetes mellitus without complications; I10 Essential (primary) hypertension; F17.210 Nicotine dependence, cigarettes, uncomplicated; Z46.6 Encounter for fitting and adjustment of urinary device; Z88.6 Allergy status to analgesic agent; Z88.1 Allergy status to other antibiotic agents; Z88.5 Allergy status to narcotic agent; Z79.82 Long term (current) use of aspirin; Z79.899 Other long term (current) drug therapy
CPT/HCPCS: 51702; 81002; 87086; 87186; 99284

== ENCOUNTER 2019-03-14 18:52 | Emergency (ER) | payer OTHER ==
[~2019-03-14] VITALS: Ht 182.9 cm; Wt 87.1 kg
[2019-03-14 20:00] VITALS: BP 157/90
--- NOTE | 2019-03-14 20:02 | NUR ---
TO LOBBY A/W BED AMBULATORY
--- NOTE | 2019-03-14 20:29 | NUR ---
PT AMBULATED TO BED 8.
--- NOTE | 2019-03-14 20:40 | NUR ---
63 Y/O MALE BIB SELF FOR URINARY CATHETER CHANGE, DONE 34 DAYS AGO. DISCOMFORT NOTED IN THE SUPRAPUBIC REGION. PAIN IS 5/10; NONRADIATING. ERMD MADE AWARE OF STATUS. SIDE RAILSX1. WILL CONTINUE TO MONITOR. VSS. PMH:COPD; ASTHMA; HTN; CHF RX:OXYCODONE; ACETAMINOPHEN; POTASSIUM CHLORIDE; METFORMIN; PREDNISONE; TAMSULOSINL CARVEDILOL;GLIPIZIDE, ATORVASTATIN; FUROSEMIDE; ASA ALLERGIES: SEE MED REC
[2019-03-14 21:04] VITALS: BP 128/86
--- NOTE | 2019-03-14 21:04 | NUR ---
Patient discharged with v/s stable. Written and verbal after care instructions given and explained. Patient verbalized understanding. Ambulatory with steady gait. All questions about cruz catheter addressed prior to discharge. Advised to follow up with PMD.
== END 2019-03-14 21:04 | disposition home or self-care (01) ==
LOC: MED 18:52
DX: Z46.6 Encounter for fitting and adjustment of urinary device (principal); J45.909 Unspecified asthma, uncomplicated; J44.9 Chronic obstructive pulmonary disease, unspecified; E11.9 Type 2 diabetes mellitus without complications; I10 Essential (primary) hypertension; Z88.1 Allergy status to other antibiotic agents; Z88.6 Allergy status to analgesic agent; Z88.5 Allergy status to narcotic agent; Z79.899 Other long term (current) drug therapy; Z98.890 Other specified postprocedural states; Z79.84 Long term (current) use of oral hypoglycemic drugs
CPT/HCPCS: 51702; 99284

== ENCOUNTER 2019-03-15 03:35 | Emergency (ER) | payer OTHER ==
[~2019-03-15] VITALS: Ht 182.9 cm; Wt 85.3 kg
[2019-03-15 03:35] VITALS: BP 180/92
--- NOTE | 2019-03-15 03:35 | NUR ---
63 Y/O FEMALE WAS SEEN BY ERMD LAST FOR CHANGE OF CATHETER (03/14/19) C/O OF BLOOD IN ALCALA CATHETER TUBING. PAIN IS A 9/10 SHARP PAIN. PER PATIENT, " I THINK IT WAS THE WAY I WAS HOLDING IT OR IT MIGHT HAVE TUGGED ONTO SOMETHING FOR IT TO BLEED". BLOOD NOTED IN 16 WELSH TUBING. ERMD MADE AWARE OF STATUS. SIDE RAILSX1. PLACED ON MONITOR. WILL CONTINUE TO MONITOR. PMH: COPD; ASTHMA; HTN; CHF RX:OXYCODONE; ACETAMINOPHEN; PREDNISONE; ATORVASTATIN; CARVEDILOL; GLIPIZIDE; POTASSIUM CHLORIDE; TAMSULOSIN; METFORMIN
--- NOTE | 2019-03-15 03:35 | NUR ---
TO BED # 08 AMBULATORY
[2019-03-15] MEDS ORDERED: LIDOCAINE JELLY 2% 30 ML TUBE TP ONE (04:00)
--- NOTE | 2019-03-15 04:51 | NUR ---
PLACED THREE WAY IRRIGATION CATHETER. URINE FLOWING.
--- NOTE | 2019-03-15 05:01 | NUR ---
FLUSH STOPPED. 2000ML IRRIGATION TOTAL; ALCALA RUNNING SMOOTHLY AND CLEAR.
== END 2019-03-15 05:27 | disposition home or self-care (01) ==
LOC: MED 03:35
DX: Z46.6 Encounter for fitting and adjustment of urinary device (principal); R31.9 Hematuria, unspecified; J45.909 Unspecified asthma, uncomplicated; I11.0 Hypertensive heart disease with heart failure; I50.9 Heart failure, unspecified; J44.9 Chronic obstructive pulmonary disease, unspecified; E11.9 Type 2 diabetes mellitus without complications; Z79.82 Long term (current) use of aspirin; Z88.1 Allergy status to other antibiotic agents; Z88.5 Allergy status to narcotic agent
CPT/HCPCS: 51702; 99284

== ENCOUNTER 2019-04-06 21:06 | Emergency (ER) | payer OTHER ==
[~2019-04-06] VITALS: Ht 182.9 cm; Wt 78.0 kg
[2019-04-06 21:10] VITALS: BP 114/69
[2019-04-06] MEDS: LIDOCAINE JELLY 2% 30 ML TUBE TP ONE (22:42)
[2019-04-07 00:25] VITALS: BP 114/69
== END 2019-04-07 00:25 | disposition home or self-care (01) ==
LOC: MED 21:06
DX: Z46.6 Encounter for fitting and adjustment of urinary device (principal); J45.909 Unspecified asthma, uncomplicated; I51.9 Heart disease, unspecified; I10 Essential (primary) hypertension; J44.9 Chronic obstructive pulmonary disease, unspecified; Z79.899 Other long term (current) drug therapy
CPT/HCPCS: 51702; 99284

== ENCOUNTER 2019-04-07 16:18 | Emergency (ER) | payer OTHER ==
[~2019-04-07] VITALS: Ht 182.9 cm; Wt 78.0 kg
[2019-04-07 16:54] VITALS: BP 146/107
--- NOTE | 2019-04-07 17:05 | NUR ---
PT AMB TO BED 4. REPORTED TO KUN DARBY.
--- NOTE | 2019-04-07 17:38 | NUR ---
63 Y/O MALE PRESENTS WITH SHARP ABD PAIN 10/10, RECTAL BLEEDING WITH BRIGHT RED BLOOD, HEMATURIA X1 DAY. PT WAS IN [facility] ER LAST NIGHT WITH HEMATURIA AND HIS INDWELLING ALCALA CATH WAS REPLACED BY STAFF. PT HAS INDWELLING ALCALA CATH DUE TO BPH. TODAY PT BEGAN HAVING BRIGHT RED BLOOD IN STOOL, LAST BM WAS YESTERDAY AND WAS NORMAL PER PT. BOWEL SOUNDS ARE NORMOACTIVE,ABD SOFT AND NON TENDER. RESP EVEN AND UNLABORED. PT DENIES SOB/CP.
[2019-04-07 18:07] LABS: APPEARANCE,URINE CLOUDY (CLEAR); BILIRUBIN,URINE NEGATIVE (NEGATIVE); BLOOD, URINE 3+ (NEGATIVE); COLOR,URINE AMBER (YELLOW); LEUKOCYTE ESTERASE ,URINE 1+ (NEGATIVE); NITRITE, URINE NEGATIVE (NEGATIVE); PH,URINE 5.5 (5.0-9.0); UGLUCOSE NEGATIVE (NEGATIVE)
[2019-04-07] MEDS ORDERED: ONDANSETRON 4 MG ODT PO ONE (18:15)
[2019-04-07] MEDS ORDERED: HYDROcodone/APAP 5/325 MG 1 TAB TAB PO ONE (18:15)
[2019-04-07 18:29] LABS: RBC,URINE 11-20 (MOD) /HPF (0-5); WBC,URINE 0-5 /HPF (0-5)
[2019-04-07 19:08] VITALS: BP 142/82
== END 2019-04-07 19:08 | disposition home or self-care (01) ==
LOC: MED 16:18
DX: N39.0 Urinary tract infection, site not specified (principal); N48.29 Other inflammatory disorders of penis; J45.909 Unspecified asthma, uncomplicated; J44.9 Chronic obstructive pulmonary disease, unspecified; I10 Essential (primary) hypertension; Z79.899 Other long term (current) drug therapy; Z88.1 Allergy status to other antibiotic agents; Z88.6 Allergy status to analgesic agent; Z88.5 Allergy status to narcotic agent; Z79.84 Long term (current) use of oral hypoglycemic drugs
CPT/HCPCS: 81001; 99283; Q0162